=== PATIENT | female | born 1940 | race Caucasian/White ===

== ENCOUNTER → 2017-09-29 09:25 | Outpatient (CLI) | payer MEDICARE, OTHER, SELFPAY ==
--- NOTE | 2017-09-29 | DI.ECHO.S_ITS ---
[facility]---------+ [facility] +---------+ : : [address] : [address] : : : : [id number] : : : : Phone: [phone]+ Echocardiogram Report + + :Name: NIKKIE CATALAN Study Date: 09/29/2017 Height: 63 in : :[facility] Weight: 148 lb : : Gender: Female BSA: 1.7 m2 : :: 1940 Age: 76 yrs BP: 136/54 mmHg: :Reason For Study: Cardiomyopathy, Dilated : :Ordering Physician: Luba : :Freddyiwnoel Performed By: Sharri Dooley : :Referring: Rodrigo Landaverde : + + Interpretation Summary The left ventricle is mildly dilated. The ejection fraction is estimated to be 25-30%. Compared to the prior exam, left ventricular function is slightly improved. The right ventricle is grossly normal size. The right ventricular systolic function is normal. There is trace tricuspid regurgitation. The right ventricular systolic pressure is estimated at 42 mmHg assuming a right atrial pressure of 3 mm Hg. Procedure: A two-dimensional transthoracic echocardiogram with color flow and Doppler was performed. The study quality was technically adequate. Comparison is made with the echocardiogram of 05-20-17. The patient was in normal sinus rhythm during the exam. The patient had a bundle branch block rhythm during the exam. Left Ventricle: There is normal left ventricular wall thickness. The left ventricle is mildly dilated. There is no thrombus. A false chord is noted (normal variant). The ejection fraction is estimated to be 25-30%. Compared to the prior exam, left ventricular function is slightly improved. There is severe global hypokinesis of the left ventricle. There is a mild dyssynchronous contraction pattern, consistent with a conduction abnormality. Grade I diastolic dysfunction. Right Ventricle: The right ventricle is grossly normal size. The right ventricular systolic function is normal. Atria: The left atrium is moderately dilated. There has been no significant change since the previous study. Right atrial size is normal. The interatrial septum is intact with no evidence for an atrial septal defect. Mitral Valve: There is mild mitral annular calcification. There is trace mitral regurgitation. Aortic Valve: The aortic valve is trileaflet. The aortic valve opens well. There is no aortic valve stenosis. No aortic regurgitation is present. Tricuspid Valve: The tricuspid valve is normal in structure and function. The right ventricular systolic pressure is estimated at 42 mmHg assuming a right atrial pressure of 3 mm Hg. There is trace tricuspid regurgitation. Pulmonic Valve: The pulmonic valve is not well seen, but is grossly normal. There is trace pulmonic regurgitation. Great Vessels: The aortic root is normal size. The dimensions of the ascending aorta are normal. The IVC is of normal diameter and collapses greater than 50% with a sniff. This suggests a low right atrial pressure of 3 mm Hg. Pericardium/ Pleura There is no pericardial effusion. There is no pleural effusion. MMode/2D Measurements & Calculations LVIDd: 5.5 cm Ao root diam: 3.3 cm LVIDs: 4.6 cm Aortic Jxn: 2.6 cm FS: 16.6 % asc Aorta Diam: 3.1 cm EPSS: 0.69 cm IVSd: 1.1 cm LVPWd: 0.96 cm LV burgess. diameter/BSA (cm/m^2): 3.2 LV sys. diameter/BSA (cm/m^2): 2.7 LA dimension: 4.1 cm RA long axis: 4.6 cm LA A2 area: 22.3 cm2 RA area: 16.2 cm2 LA A4 area: 20.6 cm2 RA vol: 47.9 ml LA length (vol): 4.6 cm RA : 28.1 ml/m2 LA vol: 84.4 ml IVC diam: 1.2 cm LA vol index: 49.6 ml/m2 RVDd major: 3.9 cm RVD1 (basal): 3.0 cm LA Length_phl: 4.7 cm Doppler Measurements & Calculations Ao V2 max: 118.9 cm/sec MV E max mp: 51.2 cm/sec Ao V2 mean: 75.3 cm/sec MV A max mp: 94.4 cm/sec Ao max P.7 mmHg MV E/A: 0.54 Ao mean P.7 mmHg Med Peak E' Mp: 4.4 cm/sec Ao V2 VTI: 30.1 cm E/E' med: 11.6 Lat Peak E' Mp: 3.1 cm/sec E/E' lat: 16.8 E/e' average: 14.2 MV dec time: 0.39 sec MV P1/2t: 115.7 msec TR max mp: 312.0 cm/sec MV P1/2t max mp: 50.9 cm/sec TR max P.9 mmHg MVA(P1/2t): 1.9 cm2 PA V2 max: 125.2 cm/sec PA V2 mean: 79.2 cm/sec PA mean P.0 mmHg PA Accel Time: 0.13 sec Reading Physician:AMARIS
== END ==
PROVIDERS: PCP Family Medicine; Visit Provider Internal Medicine Cardiovascular Disease
DX: I42.0 Dilated cardiomyopathy (principal); I50.22 Chronic systolic (congestive) heart failure; I44.7 Left bundle-branch block, unspecified
CPT/HCPCS: 36415; 80048; 93306

== ENCOUNTER → 2017-09-29 10:49 | Outpatient (CLI) | payer MEDICARE, OTHER, SELFPAY ==
[2017-09-29 11:46] LABS: Blood Urea Nitrogen 30 mg/dL (7-17); Calcium 9.9 mg/dL (8.4-10.2); Carbon Dioxide 33 mmol/L (22-32); Chloride 97 mmol/L (98-107); Estimated Glomerular Filt Rate 43.6 mL/min (>60); Glucose 107 mg/dL (80-110); HEMOLYSIS < 15 (0-50); Potassium 4.6 mmol/L (3.4-5.1); Sodium 136 mmol/L (137-145)
== END ==
PROVIDERS: PCP Family Medicine; Visit Provider Internal Medicine Cardiovascular Disease
DX: I50.22 Chronic systolic (congestive) heart failure (principal); I42.0 Dilated cardiomyopathy; Z53.9 Procedure and treatment not carried out, unspecified reason
CPT/HCPCS: 36415; 80048

== ENCOUNTER → 2017-11-04 14:03 | Outpatient (CLI) | payer MEDICARE, OTHER, SELFPAY ==
[2017-11-04 14:26] LABS: Add Manual Diff / Slide Review NO; Basophils Percent Auto 1.2 % (0-2); Eosinophils Percent Auto 4.7 % (2-4); Hematocrit 32.3 % (36-46); Lymphocytes Percent Auto 16.5 % (25-40); Mean Corpuscular Hemoglobin 37.9 PG (26-34); Mean Corpuscular Volume 111.7 fL (80-100); Monocytes Percent Auto 8.1 % (3-14); Neutrophils Absolute Auto 4400 /uL (3000-5900); Neutrophils Percent Auto 69.5 % (50-75); Platelet Count 252 X10^3/uL (150-400); Red Blood Cell Count 2.89 X10^6/uL (4.0-5.2); Red Cell Distribution Width 16.3 % (11.6-14.8); White Blood Cell Count 6.4 X10^3/uL (4.5-11.0)
[2017-11-04 14:59] LABS: Alanine Aminotransferase 40 IU/L (9-52); Albumin 3.3 g/dL (3.5-5.0); Albumin Globulin Ratio 1.1 (1.0-2.8); Alkaline Phosphatase 109 U/L (38-126); Aspartate Aminotransferase 32 IU/L (14-36); Bilirubin Total 0.6 mg/dL (0.2-1.3); Bilirubin Unconjugated 0.3 mg/dL (0.0-1.1); HEMOLYSIS < 15 (0-50); Total Protein 6.3 g/dL (6.3-8.2)
[2017-11-04 15:42] LABS: Macrocytosis 2+
== END ==
PROVIDERS: PCP Family Medicine; Visit Provider Internal Medicine Gastroenterology
DX: Z79.899 Other long term (current) drug therapy (principal)
CPT/HCPCS: 36415; 80076; 85025

== ENCOUNTER → 2017-12-03 11:23 | Outpatient (CLI) | payer MEDICARE, OTHER, SELFPAY ==
--- NOTE | 2017-12-03 | DI.CT.S_ITS ---
PROCEDURE: CT ABDOMEN PELVIS W CON INDICATIONS: Nausea. Loss of appetite TECHNIQUE: After the administration of oral and intravenous contrast, 5 mm thick sections acquired from the diaphragms to the symphysis. 5 mm thick coronal and sagittal reformats were performed. For radiation dose reduction, the following was used: automated exposure control, adjustment of mA and/or kV according to patient size. COMPARISON: [facility], CT, ABDOMEN/PELVIS WITH CONTRAST, 11/16/2015, 13:41. FINDINGS: Image quality: Excellent. ABDOMEN: Lung bases: Again noted are multiple nodular densities scattered in posterior and lateral periphery of right lower lobe as well as the lateral aspect of left lower lobe, essentially unchanged in size and appearance from previous studies dating back to 2012 and are suggestive of benign process. Cardiac size is normal, no paracardial effusion. No pleural effusion or pneumothorax. Solid organs: Liver is normal in size. Hepatic steatosis is seen. No discrete hepatic lesion. Gallbladder is surgically absent. Biliary system is non-dilated. Pancreas enhances normally. Spleen is normal in size and enhancement. No adrenal nodules. Kidneys are normal in size and enhancement, without hydronephrosis. Large right renal cyst is again seen, unchanged in size and appearance from previous study. Peritoneum and bowel: There is a small hiatal hernia. No evidence of bowel obstruction. No abnormal stomach or small bowel wall thickening. There is fecal stasis in the colon. There is diffuse sigmoid colon wall thickening and edema with pericolonic fat stranding. Diffuse rectal wall thickening with adjacent fat stranding is also seen. Sigmoid diverticulosis is noted. No free fluid or free air. Nodes and vessels: No retroperitoneal or mesenteric adenopathy. Aorta and inferior vena cava are normal in caliber. Miscellaneous: No ventral hernias. PELVIS: Genitourinary: There is mild anterior bladder wall thickening. No discrete bladder wall mass is seen. Miscellaneous: No inguinal hernias or adenopathy. Bones: No suspicious bony lesions. No vertebral body compression fractures. IMPRESSION: 1. Long segment circumferential wall thickening and edema involving mid to distal sigmoid colon and rectum suggestive of infectious, ischemic or inflammatory colitis and proctitis. Underlying rectal wall mass cannot be excluded. GI correlation is recommended. Finding is not suggestive of acute diverticulitis. 2. No bowel obstruction. No free fluid or free air. 3. Interval cholecystectomy. Hepatic steatosis. 4. Stable appearing bibasilar pulmonary nodules. Dictated by: Miller Fitch M.D. on 12/03/2017 at 15:22 Approved by: Miller Fitch M.D. on 12/03/2017 at 15:34
[2017-12-03 12:13] LABS: Blood Urea Nitrogen 35 mg/dL (7-17); Carbon Dioxide 33 mmol/L (22-32); Chloride 100 mmol/L (98-107); Estimated Glomerular Filt Rate 36.4 mL/min (>60); Glucose 110 mg/dL (80-110); HEMOLYSIS < 15 (0-50); Potassium 4.7 mmol/L (3.4-5.1); Sodium 138 mmol/L (137-145)
== END ==
PROVIDERS: PCP Family Medicine; Visit Provider Internal Medicine Gastroenterology
DX: K50.10 Crohn's disease of large intestine without complications (principal); R11.2 Nausea with vomiting, unspecified; I50.22 Chronic systolic (congestive) heart failure; K76.0 Fatty (change of) liver, not elsewhere classified; R91.8 Other nonspecific abnormal finding of lung field
CPT/HCPCS: 36415; 74177; 80048; Q9967

== ENCOUNTER → 2018-02-08 12:48 | Outpatient (CLI) | payer MEDICARE, OTHER, SELFPAY ==
[2018-02-08 14:19] LABS: Hematocrit 31.3 % (36-46); Hemoglobin 10.7 g/dL (12.0-16.0); Mean Corpuscular HGB Conc 34.1 % (30-36); Mean Corpuscular Hemoglobin 37.9 PG (26-34); Platelet Count 354 X10^3/uL (150-400); Red Blood Cell Count 2.81 X10^6/uL (4.0-5.2); Red Cell Distribution Width 17.2 % (11.6-14.8); White Blood Cell Count 6.5 X10^3/uL (4.5-11.0)
[2018-02-08 14:22] LABS: Add Manual Diff / Slide Review YES
[2018-02-08 14:44] LABS: Neutrophils Absolute Manual 5135 /uL (3000-5900); Nucleated Red Blood Cells 1 #/Diff; Total Cells Counted 100
[2018-02-08 14:46] LABS: Macrocytosis 2+
[2018-02-08 15:39] LABS: Alanine Aminotransferase 29 IU/L (9-52); Albumin 3.7 g/dL (3.5-5.0); Albumin Globulin Ratio 1.2 (1.0-2.8); Alkaline Phosphatase 115 U/L (38-126); Aspartate Aminotransferase 24 IU/L (14-36); Bilirubin Total 0.7 mg/dL (0.2-1.3); Bilirubin Unconjugated 0.4 mg/dL (0.0-1.1); Blood Urea Nitrogen 26 mg/dL (7-17); Calcium 9.9 mg/dL (8.4-10.2); Carbon Dioxide 31 mmol/L (22-32); Chloride 97 mmol/L (98-107); Estimated Glomerular Filt Rate 39.6 mL/min (>60); Globulin 3.2 g/dL (1.7-4.1); Glucose 101 mg/dL (80-110); HEMOLYSIS < 15 (0-50); Potassium 4.2 mmol/L (3.4-5.1); Sodium 135 mmol/L (137-145); Total Protein 6.9 g/dL (6.3-8.2)
== END ==
PROVIDERS: Family Provider Student in an Organized Health Care Education/Training Program; PCP Student in an Organized Health Care Education/Training Program; Visit Provider Internal Medicine Cardiovascular Disease
DX: Z79.899 Other long term (current) drug therapy (principal); I50.22 Chronic systolic (congestive) heart failure
CPT/HCPCS: 36415; 80048; 80076; 85025

== ENCOUNTER → 2018-02-23 10:36 | Outpatient (CLI) | payer MEDICARE, OTHER, SELFPAY ==
--- NOTE | 2018-02-23 | DI.ECHO.S_ITS ---
[facility]---------+ [facility] +---------+ : : [address] : : : : [address] : : : : [id number] : : : : Phone: [phone]+ Echocardiogram Report + + :Name: NIKKIE CATALAN Study Date: 02/23/2018 Height: 63 in : :[facility] Weight: 130 lb : : Gender: Female BSA: 1.6 m2 : :: 1940 Age: 77 yrs BP: 120/62 mmHg: :Reason For Study: Cardiomyopathy, Dilated : :Ordering Physician: Luba : :María Performed By: Sharri Dooley : :Referring: Rodrigo Landaverde : + + Interpretation Summary The left ventricle is normal in size. Left ventricular systolic function is mild to moderately reduced. The ejection fraction is estimated to be 40-45%. Left ventricular systolic function has moderately improved compared to the previous exam. Diastolic parameters suggest a relaxation abnormality of the left ventricle, consistent with probable normal filling pressures. The right ventricle grossly appears normal in size with probable normal systolic function. Procedure: A two-dimensional transthoracic echocardiogram with color flow and Doppler was performed in limited views only. The study quality was technically good. Comparison is made with the echocardiogram of 09-29-17. The patient was in normal sinus rhythm during the exam. Left Ventricle: The left ventricle is normal in size. There is mild asymmetric left ventricular hypertrophy. Left ventricular systolic function is mild to moderately reduced. The ejection fraction is estimated to be 40-45%. Left ventricular systolic function has moderately improved compared to the previous exam. There is a mild dyssynchronous contraction pattern, consistent with a conduction abnormality. Diastolic parameters suggest a relaxation abnormality of the left ventricle, consistent with probable normal filling pressures. Right Ventricle: The right ventricle grossly appears normal in size with probable normal systolic function. Mitral Valve: The mitral valve leaflets appear mildly thickened, but open well. There is trace mitral regurgitation. Aortic Valve: The aortic valve is trileaflet. The aortic valve opens well. There is trace aortic regurgitation. Tricuspid Valve: The tricuspid valve is normal in structure and function. There is trace tricuspid regurgitation. MMode/2D Measurements & Calculations LVIDd: 5.3 cm LVIDs: 4.8 cm FS: 8.0 % IVSd: 1.2 cm LVPWd: 0.90 cm LV burgess. diameter/BSA (cm/m^2): 3.3 LV sys. diameter/BSA (cm/m^2): 3.0 Doppler Measurements & Calculations MV E max mp: 59.2 cm/sec TR max mp: 256.2 cm/sec MV A max mp: 101.4 cm/sec TR max P.2 mmHg MV E/A: 0.58 Med Peak E' Mp: 3.9 cm/sec E/E' med: 15.2 Lat Peak E' Mp: 4.4 cm/sec E/E' lat: 13.4 E/e' average: 14.3 MV dec time: 0.19 sec MV P1/2t: 55.9 msec MV P1/2t max mp: 59.6 cm/sec MVA(P1/2t): 3.9 cm2 Reading Physician:AMARIS
[2018-02-23 12:22] LABS: BUN Creatinine Ratio 21.7 (6-22); Blood Urea Nitrogen 26 mg/dL (7-17); Calcium 9.5 mg/dL (8.4-10.2); Carbon Dioxide 30 mmol/L (22-32); Chloride 99 mmol/L (98-107); Estimated Glomerular Filt Rate 43.4 mL/min (>60); Glucose 108 mg/dL (80-110); HEMOLYSIS < 15 (0-50); Potassium 4.6 mmol/L (3.4-5.1); Sodium 139 mmol/L (137-145)
[2018-02-23 13:25] LABS: B Type Natriuretic Peptide 31.2 (<100)
== END ==
PROVIDERS: Family Provider Student in an Organized Health Care Education/Training Program; PCP Student in an Organized Health Care Education/Training Program; Referring Provider Physician Assistant; Visit Provider Internal Medicine Cardiovascular Disease
DX: I42.0 Dilated cardiomyopathy (principal); R06.02 Shortness of breath
CPT/HCPCS: 36415; 80048; 83880; 93307

== ENCOUNTER → 2018-04-03 11:06 | Outpatient (CLI) | payer MEDICARE, OTHER, SELFPAY ==
--- NOTE | 2018-04-03 11:08 | DI.MG.S_ITS ---
BILATERAL DIGITAL SCREENING MAMMOGRAM 3D/2D WITH CAD: 04/03/2018 CLINICAL: Routine screening. Comparison is made to exams dated: 02/09/2017 mammogram, 02/08/2016 mammogram, and 02/06/2015 mammogram - [facility]. There are scattered fibroglandular elements in both breasts. Current study was also evaluated with a Computer Aided Detection (CAD) system. There are benign biopsy clips in the left breast. No significant masses, calcifications, or other findings are seen in either breast. There has been no significant interval change. IMPRESSION: NEGATIVE There is no mammographic evidence of malignancy. A 1 year screening mammogram is recommended. This exam was interpreted at Station ID: [id number]. NOTE: For mammograms, a report in lay terms will be sent to the patient. Approximately 15% of breast malignancies will not be visualized mammographically. In the management of a palpable breast mass, a negative mammogram must not discourage biopsy of a clinically suspicious lesion. Electronically Signed By: Mariella garcia/leonid:04/05/2018 16:01:51 letter sent: Normal Exam ACR BI-RADS Category 1: Negative [id number]
== END ==
PROVIDERS: Family Provider Student in an Organized Health Care Education/Training Program; PCP Student in an Organized Health Care Education/Training Program; Visit Provider Student in an Organized Health Care Education/Training Program
DX: Z12.31 Encounter for screening mammogram for malignant neoplasm of breast (principal)
CPT/HCPCS: 77063; 77067

== ENCOUNTER → 2018-04-15 14:39 | Outpatient (CLI) | payer MEDICARE, OTHER, SELFPAY ==
[2018-04-15 15:14] LABS: Blood Urea Nitrogen 30 mg/dL (7-17); Calcium 9.8 mg/dL (8.4-10.2); Carbon Dioxide 29 mmol/L (22-32); Chloride 98 mmol/L (98-107); Estimated Glomerular Filt Rate 33.6 mL/min (>60); Glucose 107 mg/dL (80-110); HEMOLYSIS < 15 (0-50); Potassium 5.2 mmol/L (3.4-5.1); Sodium 135 mmol/L (137-145)
[2018-04-15 15:23] LABS: B Type Natriuretic Peptide < 100 (<100)
== END ==
PROVIDERS: PCP Student in an Organized Health Care Education/Training Program; Visit Provider Internal Medicine Cardiovascular Disease
DX: I42.8 Other cardiomyopathies (principal); R06.09 Other forms of dyspnea
CPT/HCPCS: 36415; 80048; 83880

== ENCOUNTER → 2018-04-26 14:36 | Outpatient (CLI) | payer MEDICARE, OTHER, SELFPAY ==
[2018-04-26 16:06] LABS: BUN Creatinine Ratio 21.8 (6-22); Blood Urea Nitrogen 24 mg/dL (7-17); Calcium 9.6 mg/dL (8.4-10.2); Carbon Dioxide 29 mmol/L (22-32); Chloride 97 mmol/L (98-107); Glucose 112 mg/dL (80-110); HEMOLYSIS < 15 (0-50); Potassium 4.5 mmol/L (3.4-5.1); Sodium 133 mmol/L (137-145)
== END ==
PROVIDERS: Family Provider Student in an Organized Health Care Education/Training Program; PCP Student in an Organized Health Care Education/Training Program; Visit Provider Internal Medicine Cardiovascular Disease
DX: I50.22 Chronic systolic (congestive) heart failure (principal)
CPT/HCPCS: 36415; 80048

== ENCOUNTER → 2018-05-12 14:53 | Outpatient (CLI) | payer MEDICARE, OTHER, SELFPAY ==
[2018-05-12 15:21] LABS: Add Manual Diff / Slide Review NO; Basophils Absolute Auto 0 /uL (0-100); Basophils Percent Auto 0.5 % (0-2); Eosinophils Absolute Auto 100 /uL (0-450); Eosinophils Percent Auto 2.4 % (2-4); Hematocrit 23.9 % (36-46); Hemoglobin 8.2 g/dL (12.0-16.0); Lymphocytes Absolute Auto 700 /uL (1100-4500); Lymphocytes Percent Auto 16.1 % (25-40); Mean Corpuscular HGB Conc 34.2 % (30-36); Mean Corpuscular Hemoglobin 39.1 PG (26-34); Mean Corpuscular Volume 114.3 fL (80-100); Monocytes Absolute Auto 600 /uL (0-900); Monocytes Percent Auto 14.1 % (3-14); Neutrophils Absolute Auto 2900 /uL (1500-7000); Neutrophils Percent Auto 66.9 % (50-75); Platelet Count 295 X10^3/uL (150-400); Red Blood Cell Count 2.09 X10^6/uL (4.0-5.2); White Blood Cell Count 4.3 X10^3/uL (4.5-11.0)
[2018-05-12 15:32] LABS: Acanthocytes 1+; Anisocytosis 2+; Macrocytosis 2+; Ovalocytes 1+; Poikilocytosis 3+; Tear Drop Cells 1+
[2018-05-12 15:36] LABS: Schistocytes 1+
[2018-05-12 15:55] LABS: Alanine Aminotransferase 25 IU/L (9-52); Albumin 2.6 g/dL (3.5-5.0); Albumin Globulin Ratio 0.9 (1.0-2.8); Alkaline Phosphatase 86 U/L (38-126); Aspartate Aminotransferase 15 IU/L (14-36); Bilirubin Total 0.3 mg/dL (0.2-1.3); Bilirubin Unconjugated 0.1 mg/dL (0.0-1.1); Globulin 2.9 g/dL (1.7-4.1); HEMOLYSIS < 15 (0-50); Total Protein 5.5 g/dL (6.3-8.2)
== END ==
PROVIDERS: Family Provider Internal Medicine Cardiovascular Disease; PCP Student in an Organized Health Care Education/Training Program; Visit Provider Internal Medicine Gastroenterology
DX: Z79.899 Other long term (current) drug therapy (principal)
CPT/HCPCS: 36415; 80076; 85025

== ENCOUNTER → 2018-07-21 16:31 | Outpatient (CLI) | payer MEDICARE, OTHER, SELFPAY ==
[2018-07-21 17:31] LABS: HEMOLYSIS < 15 (0-50); Iron 26 ug/dL (37-170)
[2018-07-21 17:34] LABS: Alanine Aminotransferase 27 IU/L (9-52); Albumin 2.5 g/dL (3.5-5.0); Albumin Globulin Ratio 0.9 (1.0-2.8); Alkaline Phosphatase 81 U/L (38-126); Aspartate Aminotransferase 13 IU/L (14-36); BUN Creatinine Ratio 14.5 (6-22); Bilirubin Total 0.4 mg/dL (0.2-1.3); Bilirubin Unconjugated 0.3 mg/dL (0.0-1.1); Blood Urea Nitrogen 16 mg/dL (7-17); Carbon Dioxide 29 mmol/L (22-32); Chloride 92 mmol/L (98-107); Globulin 2.8 g/dL (1.7-4.1); Glucose 83 mg/dL (80-110); HEMOLYSIS < 15 (0-50); Potassium 4.4 mmol/L (3.4-5.1); Sodium 128 mmol/L (137-145); Total Protein 5.3 g/dL (6.3-8.2)
[2018-07-21 17:38] LABS: Reticulocyte Count, Percent 1.9 % (1.06-2.63)
[2018-07-21 17:42] LABS: Percent Iron Saturation 15 % (15-50); Total Iron Binding Capacity 172 ug/dL (265-497); Transferrin 114 mg/dL (206-381)
[2018-07-21 17:57] LABS: Add Manual Diff / Slide Review NO; Basophils Absolute Auto 0 /uL (0-100); Basophils Percent Auto 0.8 % (0-2); Eosinophils Absolute Auto 100 /uL (0-450); Eosinophils Percent Auto 1.2 % (2-4); Hematocrit 24.3 % (36-46); Hemoglobin 8.1 g/dL (12.0-16.0); Lymphocytes Absolute Auto 500 /uL (1100-4500); Lymphocytes Percent Auto 10.1 % (25-40); Mean Corpuscular HGB Conc 33.4 % (30-36); Mean Corpuscular Hemoglobin 37.8 PG (26-34); Mean Corpuscular Volume 113.3 fL (80-100); Monocytes Absolute Auto 600 /uL (0-900); Neutrophils Absolute Auto 3900 /uL (1500-7000); Neutrophils Percent Auto 75.9 % (50-75); Platelet Count 398 X10^3/uL (150-400); Red Blood Cell Count 2.15 X10^6/uL (4.0-5.2); White Blood Cell Count 5.2 X10^3/uL (4.5-11.0)
[2018-07-21 18:25] LABS: Vitamin B12 > 1000 pg/mL (239-931)
[2018-07-21 19:08] LABS: Anisocytosis 2+; Hypochromasia 2+; Poikilocytosis 1+
[2018-07-22 11:23] LABS: Folate 5.7 ng/mL (2.76-20.0)
== END ==
PROVIDERS: Family Provider Internal Medicine Cardiovascular Disease; PCP Student in an Organized Health Care Education/Training Program; Visit Provider Internal Medicine Gastroenterology
DX: I50.22 Chronic systolic (congestive) heart failure (principal); D64.9 Anemia, unspecified; N18.9 Chronic kidney disease, unspecified; Z79.899 Other long term (current) drug therapy
CPT/HCPCS: 80048; 80076; 82607; 82728; 82746; 83540; 83550; 85025; 85045; 86880

== ENCOUNTER → 2018-08-03 16:01 | Outpatient (CLI) | payer MEDICARE, OTHER, SELFPAY | PROVIDERS: Family Provider Internal Medicine Cardiovascular Disease; PCP Student in an Organized Health Care Education/Training Program; Referring Provider Internal Medicine Gastroenterology; Visit Provider Student in an Organized Health Care Education/Training Program ==

== ENCOUNTER → 2018-08-05 16:25 | Outpatient (CLI) | payer MEDICARE, OTHER, SELFPAY ==
[2018-08-09 17:47] LABS: Osmolality Urine 484 mOsm/kg (50-1200)
[2018-08-20 16:10] LABS: Collection Time Urine 24 Hours; Total Volume Urine 2400 mL
[2018-08-20 16:17] LABS: Sodium 24 Hour Urine 151 mmol/day (40-220); Sodium Urine Random 63 mmol/L (30-90)
== END ==
PROVIDERS: PCP Student in an Organized Health Care Education/Training Program; Visit Provider Student in an Organized Health Care Education/Training Program
DX: E46 Unspecified protein-calorie malnutrition (principal); E87.1 Hypo-osmolality and hyponatremia; N18.9 Chronic kidney disease, unspecified
CPT/HCPCS: 83935; 84300

== ENCOUNTER → 2018-08-20 13:52 | Outpatient (CLI) | payer MEDICARE, OTHER, SELFPAY ==
[2018-08-20 15:43] LABS: Collection Time Urine 24 Hours; Protein (Total) Urine Random 59 mg/dL (0-12); Total Protein 24 Hour Urine 325 mg/day (42-225); Total Volume Urine 550 mL
[2018-08-20 17:14] LABS: Folate 4.9 ng/mL (2.76-20.0); Vitamin B12 > 1000 pg/mL (239-931)
== END ==
PROVIDERS: Family Provider Student in an Organized Health Care Education/Training Program; PCP Student in an Organized Health Care Education/Training Program; Visit Provider Internal Medicine Gastroenterology
DX: K50.111 Crohn's disease of large intestine with rectal bleeding (principal); D75.89 Other specified diseases of blood and blood-forming organs; E46 Unspecified protein-calorie malnutrition; E87.1 Hypo-osmolality and hyponatremia; N18.9 Chronic kidney disease, unspecified
CPT/HCPCS: 36415; 82607; 82746; 84156

== ENCOUNTER → 2018-09-03 17:09 | Outpatient (CLI) | payer MEDICARE, OTHER, SELFPAY ==
[2018-09-03 19:00] LABS: BUN Creatinine Ratio 17.3 (6-22); Blood Urea Nitrogen 19 mg/dL (7-17); Calcium 9.1 mg/dL (8.4-10.2); Carbon Dioxide 29 mmol/L (22-32); Chloride 93 mmol/L (98-107); Glucose 99 mg/dL (80-110); HEMOLYSIS < 15 (0-50); Potassium 5.1 mmol/L (3.4-5.1); Sodium 127 mmol/L (137-145)
== END ==
PROVIDERS: PCP Student in an Organized Health Care Education/Training Program; Visit Provider Student in an Organized Health Care Education/Training Program
DX: N18.9 Chronic kidney disease, unspecified (principal)
CPT/HCPCS: 36415; 80048

== ENCOUNTER → 2018-09-17 13:19 | Outpatient (CLI) | payer MEDICARE, OTHER, SELFPAY ==
--- NOTE | 2018-09-17 13:22 | DI.CT.S_ITS ---
PROCEDURE: CT CHEST W CON INDICATIONS: R/o lung malignancy. 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 TECHNIQUE: After the administration of intravenous contrast, 5 mm thick sections acquired from the pulmonary apices to the posterior costophrenic angles. 7 mm thick coronal and sagittal MIP reformats were acquired. For radiation dose reduction, the following was used: automated exposure control, adjustment of mA and/or kV according to patient size. COMPARISON: [facility], CT, CT ABDOMEN PELVIS W CON, 12/03/2017, 13:03. FINDINGS: Image quality: Excellent. Lungs and pleura: No acute air space opacities. Lung volumes are relatively large, centrilobular emphysema is suspected. No pleural effusions or pneumothorax. Central and peripheral airways are patent and normal in caliber. Mediastinum: Heart size is normal. No pericardial effusion. No mediastinal or hilar adenopathy by size criteria. Thoracic aorta and central pulmonary arteries are normal in size. Esophagus is normal in caliber. No hiatal hernia. Bones and chest wall: No suspicious bony lesions. No vertebral body compression fractures. No axillary or supraclavicular adenopathy by size criteria. Thyroid gland appears normal where well seen.. Abdomen: Visualized upper abdominal solid organs appear normal. Upper abdominal bowel loops are normal in caliber. IMPRESSION: No pulmonary mass lesion found, what appears to be pulmonary hyperexpansion and centrilobular emphysema is suspected. A source of cough and SIADH is not identified. Dictated by: Ricardo Booker M.D. on 09/17/2018 at 15:24 Approved by: Ricardo Booker M.D. on 09/17/2018 at 15:26
== END ==
PROVIDERS: PCP Student in an Organized Health Care Education/Training Program; Visit Provider Student in an Organized Health Care Education/Training Program
DX: E22.2 Syndrome of inappropriate secretion of antidiuretic hormone (principal); R05 Cough; R91.8 Other nonspecific abnormal finding of lung field
CPT/HCPCS: 71260; Q9967

== ENCOUNTER → 2018-12-09 13:51 | Outpatient (CLI) | payer MEDICARE, OTHER, SELFPAY ==
[2018-12-09 15:43] LABS: Folate 5.9 ng/mL (2.76-20.0); Vitamin B12 917 pg/mL (239-931)
== END ==
PROVIDERS: PCP Student in an Organized Health Care Education/Training Program; Visit Provider Internal Medicine Gastroenterology
DX: K50.111 Crohn's disease of large intestine with rectal bleeding (principal); D75.89 Other specified diseases of blood and blood-forming organs
CPT/HCPCS: 36415; 82607; 82746

== ENCOUNTER → 2019-03-15 13:59 | Outpatient (CLI) | payer MEDICARE, OTHER, SELFPAY ==
[2019-03-15 14:42] LABS: Appearance Urine UA SL CLOUDY; Bilirubin Urine UA NEGATIVE (NEGATIVE); Color Urine UA YELLOW; Glucose Urine UA NEGATIVE (Negative); Ketones Urine UA NEGATIVE (NEGATIVE); Leukocyte Esterase Urine UA 1+ (NEGATIVE); Nitrite Urine UA POSITIVE (Negative); Occult Blood Urine UA TRACE-LYSED (Negative); Protein Urine UA 2+ (Negative); Urobilinogen Urine UA 0.2 E.U./dL (0.2)
[2019-03-15 14:43] LABS: pH Urine UA 5.5 (4.5-8.0)
[2019-03-15 14:51] LABS: Amorphous Sediment Urine 1+; Bacteria Urine Many (>30); Culture Indicated Urine Specimen Cultured; Mucus Urine 1+ (Negative); RBC Urine 0-1/HPF (0-5/HPF); Squamous Epithelial Cell Urine 1-5 /HPF (0-5/HPF); WBC Urine 30-100/HPF (0-5/HPF)
== END ==
PROVIDERS: PCP Student in an Organized Health Care Education/Training Program; Visit Provider Nurse Practitioner
DX: R30.0 Dysuria (principal)
CPT/HCPCS: 81001; 87077; 87086; 87186

== ENCOUNTER → 2019-04-07 10:00 | Oncology outpatient (ONC) | payer MEDICARE, OTHER, SELFPAY ==
[2019-03-22 14:00] VITALS: BP 131/56; PULSE 67; RESP 16; TEMP 36.8; O2SAT 97
--- NOTE | 2019-03-22 14:38 | ONC.CONS ---
History of Present Illness - Data of Consult Consult date: 03/22/19 Primary Care Provider: Roberto West MD - Consult Narrative Narrative: Diagnosis: Macrocytic anemia History of present illness: Narda Flynn is a 78 year old female who is referred for further evaluation of anemia. She has a longstanding history of Crohn's. She had been stable on Remicade but developed a heart murmur. Because of this, her Remicade was stopped. Since then, she has had worsening flare of her disease. She knows frequent diarrhea up to 20 or 20 5 times a day. She has occasional blood in the stool although it has not been severe. She has ongoing nausea and abdominal pain. She has lost almost 30 lb over the last year. She notes persistent fatigue. She has some dizziness. She is not having any chest pain or pressure. She does have some dyspnea on exertion and a cough which has been chronic. She did have transfusion once many years ago but has not had any other transfusions. She denies any epistaxis or gingival bleeding. She has not noticed any adenopathy. No fevers. She does have some chills and occasional night sweats. In July, her white count was 5000 hemoglobin was 8 hematocrit 25.4 with an MCV of 116 and a platelet count of [id number]. In 2018, her red cell count had been normal or nearly normal. Her past medical history is notable for Crohn's disease as described above. She has a history of hypertension and hyperlipidemia. She has a history of a heart murmur. She has had a stent placed in her carotid artery. She has a history of COPD and did recently quit smoking. She has had a prior appendectomy, cholecystectomy and hysterectomy. Her family history is negative for anemia. She thinks that both her mother grandmother may have had Crohn's disease and or colon cancer. Social history: She is . 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 CC: Mega Mayer MD Home Medications and Allergies Home Medications Medication Instructions Recorded Confirmed Type atorvastatin [Lipitor] 20 mg PO QPM #120 tab 07/25/16 07/21/18 Rx azathioprine 150 mg PO #0 08/15/16 07/21/18 History naproxen sodium [Aleve] 220 mg PO BIDCC #0 11/20/16 07/21/18 History polyethylene glycol 3350 [Miralax] 17 gm PO QDAYP PRN #0 11/20/16 07/21/18 History aspirin #0 06/04/17 07/21/18 History carvedilol [Coreg] #0 06/04/17 07/21/18 History mupirocin 2 % TOPICAL TID #22 gm 06/04/17 07/21/18 Rx ferrous sulfate 325 mg (65 mg 325 mg PO DAILY tab 01/07/18 07/21/18 History iron) tablet omeprazole 20 mg capsule,delayed 20 mg PO DAILY 01/07/18 07/21/18 History release ipratropium 20 mcg-albuterol 100 1 inhalation INHALATION QID #4 gram 03/10/18 07/21/18 Rx mcg/actuation mist for inhalation lisinopril 2.5 mg tablet 5 mg PO BID #0 tab 07/21/18 07/21/18 History budesonide-formoterol HFA 80 2 puff INHALATION BID 07/27/18 History mcg-4.5 mcg/actuation aerosol inhaler montelukast 10 mg tablet 10 mg PO QPM 07/27/18 History food supplemt, lactose-reduced See Rx Instructions .ROUTE 08/04/18 Rx .COMPLEX #10 each levothyroxine 75 mcg tablet 75 mcg PO QDAY #90 tab 09/02/18 Rx trazodone 100 mg tablet 100 mg PO DAILY #90 tab 11/12/18 Rx nitrofurantoin 100 mg PO BID #14 cap 03/16/19 Rx monohydrate/macrocrystals 100 mg capsule phenazopyridine 100 mg tablet 100 mg PO TID PRN #6 tab 03/16/19 Rx Allergies Allergy/AdvReac Type Severity Reaction Status Date / Time No Known Drug Allergies Allergy Verified 07/21/18 15:53 Medical History - Medical, Surgical, Family History Medical History: Medical History (Last Updated 01/15/18 @ 12:57 by Kiarra Topete LPN) Anxiety Carpal tunnel syndrome Cataract, right eye CHF (congestive heart failure) Colon polyps COPD (chronic obstructive pulmonary disease) Crohn's disease Depression Glaucoma Hearing loss Hiatal hernia Hyperlipidemia Hypertension Hypothyroidism Macular hole Pulmonary nodules Onset Date: 2009 Scarlet fever Ulcerative colitis Surgical History: Surgical History (Last Updated 01/15/18 @ 12:57 by Kiarra Topete LPN) History of carpal tunnel release History of repair of hiatal hernia History of tonsillectomy Hx of cataract surgery Hx of cholecystectomy Hx of colonoscopy with polypectomy Hx of vitrectomy Status post appendectomy Status post hysterectomy Family History: Family History Brother No problems noted. Father No problems noted. Mother Cancer Grandmother Leukemia - Social History Smoking Status: Current some day smoker (Trying to quit) Review of Systems - Patient Self-Reported Symptoms SR Constitution: Chills, Weight loss/gain, Fatigue/Malaise, Night Sweats SR respiratory issues: Cough, Shortness of breath, Difficulty breathing, Mucous SR Cardiovascular issues: Shortness of breath with activity or lying flat, Dizzy/lightheaded SR Skin issues: Dry skin, Skin rash or itching SR Gastrointestinal issues: Poor or no appetite, Change in bowel pattern, Nausea, Vomiting, Diarrhea, Constipation SR Genitourinary issues: Burning/painful urination, Change in stream SR Musculoskeletal issues: Muscle weakness, Cold hands or feet, Difficulty walking SR Neuro issues: Lightheaded/dizzy, Difficulty balancing SR Endocrine issues: Cold intolerance Constitutional: weight loss, decreased activity level Eyes: change in vision Ears, nose, mouth, throat: lightheadedness, no epistaxis Cardiovascular: dyspnea on exertion, no chest pain, no palpitations Respiratory: shortness of breath, cough, no hemoptysis Gastrointestinal: change in appetite, abdominal pain, diarrhea, abnormal stools Musculoskeletal: weakness, no pain Integumentary: no rash Integumentary (breast): no lumps Hematologic/Lymphatic: anemia, no enlarged lymph nodes Exam Vital signs: Vital Signs Temp Pulse Resp BP Pulse Ox 03/22/19 14:00 98.2 F 67 16 131/56 L 97 Intake and Output 03/21/19 03/22/19 03/22/19 23:59 07:59 15:59 Other: Weight 49.5 kg Patient Weight 03/22/19 23:59 Weight 49.5 kg - Constitutional positive no acute distress, positive thin - Routine HEENT Exam Head: Present: normocephalic, atraumatic Eye: Present: EOMI, PERRL. Absent: conjunctival icterus, scleral injection ENT: Present: mucous membranes moist, oropharynx clear - Routine Neck Exam Present: supple. Absent: lymphadenopathy, thyromegaly - Routine Chest/Breast/Axilla Exam Axillae: Absent: lymphadenopathy - Routine Respiratory Exam Present: Clear to auscultation bilaterally. Absent: rales, wheezes - Routine Cardiovascular Exam Present: RRR, S1, S2. Absent: murmur - Routine Abdominal Exam Present: soft, normoactive bowel sounds. Absent: tenderness, organomegaly, mass - Routine Extremities Exam Absent: cyanosis, clubbing, edema - Routine Back/Spine Exam Back/Spine: Absent: vertebral tenderness - Routine Skin Exam Present: intact. Absent: petechiae, rash - Routine Neurological Exam Present: alert, oriented X3 - Routine Psychiatric Exam Present: normal affect, normal thought process Assessment and Plan (1) Anemia Current visit: No Status: Chronic This is a 78-year-old woman with a moderate to severe macrocytic anemia that is been present for at least 8-10 months but seems to have developed sometime over the course of 2018. I think it is likely multifactorial. It is certainly possible that she could have some blood loss as a consequence of her Crohn's disease. Likewise she could have some degree of anemia of chronic inflammation. She has previously had B12 and folate checked in the been normal although she could potentially be absorbing poorly. Iron deficiency could be contributing. I doubt that she has any hemolysis. Drugs or medications certainly could be contributing period of her medications, I think azathioprine would be the most likely cause. I think it is less likely that she has an underlying intrinsic marrow problem such as myelodysplasia. Today, will check a CBC as well as a B12 folate reticulocyte count and TSH. Will check an SPEP just to rule out an underlying a monoclonal gammopathy. Will also check iron studies. She will return to clinic in about 2 weeks or so for follow-up.
[2019-03-22 15:33] LABS: Reticulocyte Count, Percent 2.6 % (1.06-2.63)
[2019-03-22 15:56] LABS: C-Reactive Protein Quant 2.7 mg/dL (<1.0)
[2019-03-22 16:58] LABS: Folate 5.5 ng/mL (2.76-20.0); Vitamin B12 978 pg/mL (239-931)
[2019-03-24 12:21] LABS: Free Kappa Light Chain 109.7 mg/L (3.3-19.4); Free Kappa/ Lambda Ratio 0.94 (0.26-1.65); Free Lambda 117.1 mg/L (5.7-26.3)
[2019-03-24 20:40] LABS: Albumin 2.7 g/dL (3.8-4.8); Alpha 1 Globulin 0.5 g/dL (0.2-0.3); Alpha 2 Globulin 0.8 g/dL (0.5-0.9); Beta 1 Globulin 0.4 g/dL (0.4-0.6); Gamma Globulin 1.5 g/dL (0.8-1.7); Protein, Total 6.2 g/dL (6.1-8.1)
[2019-04-06 12:47] VITALS: BP 115/63; PULSE 69; RESP 18; TEMP 36.8; O2SAT 95
--- NOTE | 2019-04-06 13:15 | ONC.PN ---
PN -Subjective Interval history: Diagnosis: Macrocytic anemia, multifactorial Interval history: Patient is a 78-year-old woman who returns today for follow-up. She was seen initially about 2 weeks ago. She has had macrocytic anemia. She has a history of Crohn's disease that has been active recently. She is having about 20-25 loose stools a day. She occasionally sees some bright red blood. She does have a history of hemorrhoids as well. She has not been aware of any other unusual bleeding or bruising. She has been on azathioprine. She has also had been on Remicade for about 10 years but recently stopped. She has a prescription for a I think is a steroid enema but has not started using it yet. She does note worsening chills and fatigue. She has dyspnea on exertion and occasional dizziness. Her past medical history is notable for Crohn's disease. She has a history of hypertension and hyperlipidemia. She has a history of a heart murmur. She has had a stent placed in her carotid artery. She has a history of COPD and did recently quit smoking. She has had a prior appendectomy, cholecystectomy and hysterectomy. - Patient Self-Reported Symptoms SR Constitution: Chills, Weight loss/gain, Fatigue/Malaise SR respiratory issues: Cough, Shortness of breath, Difficulty breathing, Mucous SR Cardiovascular issues: Shortness of breath with activity or lying flat, Dizzy/lightheaded SR Skin issues: Skin rash or itching SR Gastrointestinal issues: Poor or no appetite, Change in bowel pattern, Nausea, Vomiting, Diarrhea, Constipation, Black/tarry stool, Abdominal pain SR Genitourinary issues: Burning/painful urination, Change in stream SR Musculoskeletal issues: Muscle weakness SR Neuro issues: Lightheaded/dizzy, Difficulty balancing SR Endocrine issues: Cold intolerance Home Medications and Allergies Home Medications Medication Instructions Recorded Confirmed Type atorvastatin [Lipitor] 20 mg PO QPM #120 tab 07/25/16 04/06/19 Rx azathioprine 150 mg PO DAILY #0 08/15/16 04/06/19 History naproxen sodium [Aleve] 220 mg PO BIDCC #0 11/20/16 04/06/19 History polyethylene glycol 3350 [Miralax] 17 gm PO QDAYP PRN #0 11/20/16 04/06/19 History aspirin 81 mg DAILY #0 06/04/17 04/06/19 History carvedilol [Coreg] 3.125 mg DAILY #0 06/04/17 04/06/19 History mupirocin 2 % TOPICAL TID #22 gm 06/04/17 04/06/19 Rx ferrous sulfate 325 mg (65 mg 325 mg PO DAILY tab 01/07/18 04/06/19 History iron) tablet omeprazole 20 mg capsule,delayed 20 mg PO DAILY 01/07/18 04/06/19 History release ipratropium 20 mcg-albuterol 100 1 inhalation INHALATION QID #4 gram 03/10/18 04/06/19 Rx mcg/actuation mist for inhalation lisinopril 2.5 mg tablet 5 mg PO BID #0 tab 07/21/18 04/06/19 History budesonide-formoterol HFA 80 2 puff INHALATION BID 07/27/18 04/06/19 History mcg-4.5 mcg/actuation aerosol inhaler montelukast 10 mg tablet 10 mg PO QPM 07/27/18 04/06/19 History food supplemt, lactose-reduced See Rx Instructions .ROUTE 08/04/18 04/06/19 Rx .COMPLEX #10 each levothyroxine 75 mcg tablet 75 mcg PO QDAY #90 tab 09/02/18 04/06/19 Rx trazodone 100 mg tablet 100 mg PO DAILY #90 tab 11/12/18 04/06/19 Rx nitrofurantoin 100 mg PO BID #14 cap 03/16/19 04/06/19 Rx monohydrate/macrocrystals 100 mg capsule phenazopyridine 100 mg tablet 100 mg PO TID PRN #6 tab 03/16/19 04/06/19 Rx Allergies Allergy/AdvReac Type Severity Reaction Status Date / Time No Known Drug Allergies Allergy Verified 07/21/18 15:53 Exam Vital signs: Vital Signs Temp Pulse Resp BP Pulse Ox 04/06/19 12:47 98.2 F 69 18 115/63 95 Intake and Output 04/05/19 04/06/19 04/06/19 23:59 07:59 15:59 Other: Weight 51 kg Patient Weight 04/06/19 23:59 Weight 51 kg - Constitutional positive no acute distress, positive thin - Routine HEENT Exam Head: Present: normocephalic, atraumatic Eye: Present: EOMI, PERRL. Absent: conjunctival icterus, scleral injection ENT: Present: mucous membranes moist, oropharynx clear - Routine Neck Exam Present: supple. Absent: lymphadenopathy, thyromegaly - Routine Respiratory Exam Present: Clear to auscultation bilaterally. Absent: rales, wheezes - Routine Cardiovascular Exam Present: RRR, S1, S2, murmur Comments: She has a 2/6 systolic murmur. - Routine Abdominal Exam Present: soft, normoactive bowel sounds. Absent: tenderness, organomegaly, mass - Routine Extremities Exam Absent: cyanosis, clubbing, edema - Routine Back/Spine Exam Back/Spine: Absent: vertebral tenderness - Routine Skin Exam Present: intact, pallor. Absent: petechiae, rash - Routine Neurological Exam Present: alert, oriented X3 - Routine Psychiatric Exam Present: normal affect, normal thought process Results - Labs Laboratory Last Values Percent Retic 2.6 % (1.06-2.63) 03/22/19 15:00 C-Reactive Protein 2.7 mg/dL (<1.0) H 03/22/19 15:00 Serum Total Protein 6.2 g/dL (6.1-8.1) 03/22/19 15:00 Albumin 2.7 g/dL (3.8-4.8) L 03/22/19 15:00 Cotmi-6-Ucxlwawqx 0.5 g/dL (0.2-0.3) H 03/22/19 15:00 Eqktb-0-Rfoibaika 0.8 g/dL (0.5-0.9) 03/22/19 15:00 Gepc-2-Mixwojqg 0.4 g/dL (0.4-0.6) 03/22/19 15:00 Hzfb-7-Usxenicn 0.3 g/dL (0.2-0.5) 03/22/19 15:00 Gamma Globulins 1.5 g/dL (0.8-1.7) 03/22/19 15:00 Abnorm Protein Band 1 Not Reportable 03/22/19 15:00 Abnorm Protein Band 2 Not Reportable 03/22/19 15:00 Abn Gamma Band 3 Serum Not Reportable 03/22/19 15:00 PEP Comment See note 03/22/19 15:00 Vitamin B12 978 pg/mL (239-931) H 03/22/19 15:00 Folate 5.5 ng/mL (2.76-20.0) 03/22/19 15:[address] [place] Light Chains 109.7 mg/L (3.3-19.4) H 03/22/19 15:00 Free Lambda Light Chain 117.1 mg/L (5.7-26.3) H 03/22/19 15:[address] [place]/Lambda Ratio 0.94 (0.26-1.65) 03/22/19 15:00 Assessment and Plan (1) Anemia Current visit: No Status: Chronic This is a 78-year-old woman with a moderate to severe macrocytic anemia that is been present for at least 8-10 months but seems to have developed sometime over the course of 2017. Her B12 and folate are normal. She does not have an elevated reticulocyte count which would effectively rule out hemolysis. She does have I think minor degree of bleeding. She also has an elevated crp and her iron studies are consistent with anemia of chronic disease. In addition, azathioprine can sometimes suppress marrow and cause a macrocytosis. SPEP was normal. Her serum free light chains were elevated in both the kappa and lambda with a normal ratio which is consistent with an inflammatory process and not a monoclonal process. Overall, I think her anemia is due to her inflammatory bowel disease, blood loss and potentially azathioprine. I think she would benefit from transfusion symptomatically. I think the best way to treat her anemia would be to try and control her Crohn's disease if possible. We did talk about the possibility of a bone marrow biopsy. It's theoretically possible that she has an underlying myelodysplasia. However chronic illness and azathioprine both can give a dysplastic appearing anemia. If her Crohn's improved in her blood counts do not, it may be worthwhile reconsidering a bone marrow biopsy.
[2019-04-06 13:59] LABS: Add Manual Diff / Slide Review NO; Basophils Absolute Auto 100 /uL (0-100); Basophils Percent Auto 1.1 % (0-2); Eosinophils Absolute Auto 100 /uL (0-450); Eosinophils Percent Auto 2.3 % (2-4); Hematocrit 21.5 % (36-46); Hemoglobin 7.2 g/dL (12.0-16.0); Lymphocytes Absolute Auto 700 /uL (1100-4500); Lymphocytes Percent Auto 12.5 % (25-40); Mean Corpuscular HGB Conc 33.6 % (30-36); Mean Corpuscular Volume 110.2 fL (80-100); Monocytes Absolute Auto 700 /uL (0-900); Monocytes Percent Auto 11.4 % (3-14); Neutrophils Absolute Auto 4300 /uL (1500-7000); Neutrophils Percent Auto 72.7 % (50-75); Platelet Count 282 X10^3/uL (150-400); Red Blood Cell Count 1.95 X10^6/uL (4.0-5.2); Red Cell Distribution Width 19.1 % (11.6-14.8); White Blood Cell Count 5.9 X10^3/uL (4.5-11.0)
[2019-04-06 14:19] LABS: Anisocytosis 2+; Hypochromasia 1+; Poikilocytosis 1+
--- NOTE | 2019-04-06 15:08 | PC.NURSE ---
Dr. Mayer reviewed pt's CBC. One unit of blood ordered. Pt would prefer to get unit tomorrow. Dr. mayer aware and agreeable to pt receiving blood tomorrow. IV clamped and secured with netting. Pt education provided to pt r/t low blood counts and blood administration, pt verbalized understanding. Pt scheduled for 10am tomorrow morning. No acute distress noted.
[2019-04-07 11:07] VITALS: BP 132/62; PULSE 72; RESP 20; TEMP 36.4
[2019-04-07 11:29] VITALS: BP 133/61; PULSE 74; RESP 16; TEMP 36.3
[2019-04-07 14:12] VITALS: BP 144/66; PULSE 71; RESP 20; TEMP 36.6
--- NOTE | 2019-06-21 12:24 | ONC.SCHED ---
patient aware of Dr Mayer's passing, would like to wait to be seen here again until after June 2019, she will call at the end of June and schedule a follow up
== END ==
PROVIDERS: PCP Student in an Organized Health Care Education/Training Program
DX: D53.9 Nutritional anemia, unspecified (principal)
CPT/HCPCS: 36415; 36430; 82607; 82746; 83883; 84155; 84165; 85025; 85045; 86140; 86850; 86900; 86901; 99204; 99214; P9016

== ENCOUNTER → 2019-06-15 12:26 | Outpatient (CLI) | payer MEDICARE, OTHER, SELFPAY ==
--- NOTE | 2019-06-15 | DI.MG.S_ITS ---
BILATERAL DIGITAL SCREENING MAMMOGRAM 3D/2D WITH CAD: 06/15/2019 CLINICAL: Routine screening. Comparison is made to exams dated: 04/03/2018 mammogram, 02/09/2017 mammogram, and 02/08/2016 mammogram - [facility]. There are scattered fibroglandular elements in both breasts. Current study was also evaluated with a Computer Aided Detection (CAD) system. There are biopsy clips in the left breast. No significant masses, calcifications, or other findings are seen in either breast. There has been no significant interval change. IMPRESSION: NEGATIVE There is no mammographic evidence of malignancy. A 1 year screening mammogram is recommended. This exam was interpreted at Station ID: [id number]. NOTE: For mammograms, a report in lay terms will be sent to the patient. Approximately 15% of breast malignancies will not be visualized mammographically. In the management of a palpable breast mass, a negative mammogram must not discourage biopsy of a clinically suspicious lesion. Electronically Signed By: Mariella garcia/leonid:06/15/2019 13:10:47 letter sent: Normal Exam ACR BI-RADS Category 1: Negative 3341F
== END ==
PROVIDERS: PCP Student in an Organized Health Care Education/Training Program; Referring Provider Student in an Organized Health Care Education/Training Program; Visit Provider Student in an Organized Health Care Education/Training Program
DX: Z12.31 Encounter for screening mammogram for malignant neoplasm of breast (principal)
CPT/HCPCS: 77063; 77067

== ENCOUNTER → 2019-10-19 10:16 | Outpatient (CLI) | payer MEDICARE, OTHER, SELFPAY ==
[2019-10-19 11:54] LABS: BUN Creatinine Ratio 28.3 (6-22); Blood Urea Nitrogen 34 mg/dL (7-17); Calcium 10.4 mg/dL (8.4-10.2); Carbon Dioxide 31 mmol/L (22-32); Chloride 100 mmol/L (98-107); Cholesterol 180 mg/dL (140-199); Estimated Glomerular Filt Rate 43.3 mL/min (>60); Glucose 121 mg/dL (80-110); HDL Cholesterol 88 mg/dL (40-60); HEMOLYSIS < 15 (0-50); LDL Cholesterol Calculated 68 mg/dL (<100); Sodium 133 mmol/L (137-145); Triglycerides 118 mg/dL (35-150)
[2019-10-19 11:55] LABS: NT-proBNP (BNP-Adult 18+) 1790 pg/mL (<450)
== END ==
PROVIDERS: PCP Student in an Organized Health Care Education/Training Program; Referring Provider Internal Medicine Cardiovascular Disease; Visit Provider Internal Medicine Cardiovascular Disease
DX: I50.22 Chronic systolic (congestive) heart failure (principal); I42.8 Other cardiomyopathies; I10 Essential (primary) hypertension
CPT/HCPCS: 36415; 80048; 80061; 83880

== ENCOUNTER → 2019-10-26 16:43 | Outpatient (CLI) | payer MEDICARE, OTHER, SELFPAY ==
[2019-10-26 17:23] LABS: Hemoglobin 11.5 g/dL (12.0-16.0); Mean Corpuscular HGB Conc 33.9 % (30-36); Mean Corpuscular Hemoglobin 38.3 PG (26-34); Mean Corpuscular Volume 112.9 fL (80-100); Platelet Count 256 X10^3/uL (150-400); Red Blood Cell Count 3.01 X10^6/uL (4.0-5.2); Red Cell Distribution Width 15.6 % (11.6-14.8); White Blood Cell Count 6.9 X10^3/uL (4.5-11.0)
== END ==
PROVIDERS: PCP Student in an Organized Health Care Education/Training Program; Referring Provider Student in an Organized Health Care Education/Training Program; Visit Provider Student in an Organized Health Care Education/Training Program
DX: D64.9 Anemia, unspecified (principal)
CPT/HCPCS: 36415; 85027; 86850; 86900; 86901

== ENCOUNTER → 2019-12-23 14:53 | Outpatient (CLI) | payer MEDICARE, OTHER, SELFPAY ==
--- NOTE | 2019-12-23 15:10 | DI.ECHO.S_ITS ---
Echocardiogram Report + + :Name: NIKKIE CATALAN Study Date: 12/23/2019 Height: 63 in : :[facility] Weight: 122 lb : : Gender: Female BSA: 1.6 m2 : :: 1940 Age: 79 yrs BP: 110/45 mmHg: :Reason For Study: CARDIOMYOPATHY : : Performed By: Wilfredo Moreira : :Referring: PRIETO BOYKIN : + + Interpretation Summary The left ventricle is normal in size. The ejection fraction is estimated to be 40-45%. There has been no significant change in LV EF since the previous exam. The right ventricle is normal in size and function. There is trace tricuspid regurgitation. The right ventricular systolic pressure is estimated to be at least 29 mmHg based on an estimated right atrial pressure of 3 mm Hg. Compared to the prior echo exam, there has been a decrease in the severity of pulmonary hypertension. Mild atherosclerotic plaque(s) in the ascending aorta. Procedure: A two-dimensional transthoracic echocardiogram with color flow and Doppler was performed. The study quality was technically good. Comparison is made with the echocardiogram of 02/23/18. The patient had a bundle branch block rhythm during the exam. The patient was in normal sinus rhythm during the exam. Left Ventricle: The left ventricle is normal in size. There is normal left ventricular wall thickness. There is no thrombus. The ejection fraction is estimated to be 40-45%. There has been no significant change since the previous exam. There is a mild dyssynchronous contraction pattern, consistent with a conduction abnormality. There is mild global hypokinesis of the left ventricle. MV E/A: 0.55 Med Peak E' Mp: 2.7 cm/sec E/E' med: 15.8. Right Ventricle: The right ventricle is normal in size and function. Atria: Both atria are mildly dilated. The left atrium has mildly decreased in size since the prior echo exam. The interatrial septum is intact with no evidence for an atrial septal defect. Mitral Valve: There is mild mitral annular calcification. Redundant elongated chordae are noted. There is trace mitral regurgitation. Aortic Valve: The aortic valve is trileaflet. The aortic valve opens well. No aortic regurgitation is present. Tricuspid Valve: The tricuspid valve is normal. There is trace tricuspid regurgitation. The right ventricular systolic pressure is estimated to be at least 29 mmHg based on an estimated right atrial pressure of 3 mm Hg. Compared to the prior echo exam, there has been a decrease in the severity of pulmonary hypertension. Pulmonic Valve: The pulmonic valve is normal in structure and function. There is trace pulmonic regurgitation. Great Vessels: The aortic root is normal size. The dimensions of the ascending aorta are normal. Mild atherosclerotic plaque(s) in the ascending aorta. The pulmonary artery is normal size. The IVC is of normal diameter and collapses greater than 50% with a sniff. This suggests a low right atrial pressure of 3 mm Hg. Pericardium/ Pleura There is no pericardial effusion. There is no pleural effusion. MMode/2D Measurements & Calculations LVIDd: 4.7 cm LVOT diam: 2.1 cm LVIDs: 3.9 cm Ao root diam: 2.8 cm FS: 17.3 % asc Aorta Diam: 3.1 cm EPSS: 0.58 cm IVSd: 1.0 cm LVPWd: 1.0 cm LV burgess. diameter/BSA (cm/m^2): 3.0 LV sys. diameter/BSA (cm/m^2): 2.5 LA dimension: 3.8 cm RA long axis: 4.3 cm LA A2 area: 20.2 cm2 RA area: 17.4 cm2 LA A4 area: 17.9 cm2 RA vol: 59.9 ml LA length (vol): 5.1 cm RA : 38.2 ml/m2 LA vol: 60.3 ml IVC diam: 1.4 cm LA vol index: 38.5 ml/m2 TAPSE: 2.2 cm Doppler Measurements & Calculations Ao V2 max: 131.0 cm/sec LVOT Max Mp: 89.6 cm/sec Ao V2 mean: 93.5 cm/sec LV V1 max P.2 mmHg Ao max P.9 mmHg LV V1 VTI: 19.4 cm Ao mean P.9 mmHg ELIZABETH(I,D): 2.4 cm2 Ao V2 VTI: 29.2 cm ELIZABETH(V,D): 2.4 cm2 sev ratio: 0.66 ELIZABETH indexed to BSA (cm^2/m^2): 1.5 MV E max mp: 43.3 cm/sec TR max mp: 255.0 cm/sec MV A max mp: 78.3 cm/sec TR max P.0 mmHg MV E/A: 0.55 PA V2 max: 108.8 cm/sec Med Peak E' Mp: 2.7 cm/sec PA V2 mean: 71.4 cm/sec E/E' med: 15.8 PA mean P.3 mmHg Lat Peak E' Mp: 3.1 cm/sec PA pr(Accel): 32.8 mmHg E/E' lat: 14.2 E/e' average: 15.0 MV dec time: 0.22 sec [facility] 68.9 ml Reading Physician:06:17 PM
== END ==
PROVIDERS: PCP Student in an Organized Health Care Education/Training Program; Referring Provider Student in an Organized Health Care Education/Training Program; Visit Provider Internal Medicine Cardiovascular Disease
DX: I42.8 Other cardiomyopathies (principal); I70.0 Atherosclerosis of aorta
CPT/HCPCS: 93306

== ENCOUNTER → 2020-01-12 15:45 | Outpatient (CLI) | payer MEDICARE, OTHER, SELFPAY ==
[2020-01-12 16:55] LABS: BUN Creatinine Ratio 27.4 (6-22); Blood Urea Nitrogen 37 mg/dL (7-17); Calcium 10.2 mg/dL (8.4-10.2); Carbon Dioxide 33 mmol/L (22-32); Chloride 98 mmol/L (98-107); Estimated Glomerular Filt Rate 37.7 mL/min (>60); Glucose 112 mg/dL (80-110); HEMOLYSIS < 15 (0-50); Potassium 4.3 mmol/L (3.4-5.1); Sodium 136 mmol/L (137-145)
== END ==
PROVIDERS: PCP Student in an Organized Health Care Education/Training Program; Referring Provider Internal Medicine Cardiovascular Disease; Visit Provider Internal Medicine Cardiovascular Disease
DX: I50.22 Chronic systolic (congestive) heart failure (principal)
CPT/HCPCS: 36415; 80048

== ENCOUNTER → 2020-01-30 13:19 | Outpatient (CLI) | payer MEDICARE, OTHER, SELFPAY ==
[2020-01-30 14:41] LABS: BUN Creatinine Ratio 24.6 (6-22); Blood Urea Nitrogen 35 mg/dL (7-17); Calcium 9.9 mg/dL (8.4-10.2); Carbon Dioxide 35 mmol/L (22-32); Chloride 98 mmol/L (98-107); Estimated Glomerular Filt Rate 35.6 mL/min (>60); Glucose 91 mg/dL (80-110); HEMOLYSIS < 15 (0-50); Potassium 4.7 mmol/L (3.4-5.1); Sodium 135 mmol/L (137-145)
== END ==
PROVIDERS: PCP Student in an Organized Health Care Education/Training Program; Referring Provider Internal Medicine Cardiovascular Disease; Visit Provider Internal Medicine Cardiovascular Disease
DX: I10 Essential (primary) hypertension (principal)
CPT/HCPCS: 36415; 80048

== ENCOUNTER → 2020-03-30 14:45 | Outpatient (CLI) | payer MEDICARE, OTHER, SELFPAY ==
[2020-03-30 15:44] LABS: BUN Creatinine Ratio 27.4 (6-22); Blood Urea Nitrogen 31 mg/dL (7-17); Calcium 10.3 mg/dL (8.4-10.2); Carbon Dioxide 32 mmol/L (22-32); Chloride 100 mmol/L (98-107); Estimated Glomerular Filt Rate 46.3 mL/min (>60); Glucose 142 mg/dL (80-110); HEMOLYSIS < 15 (0-50); Potassium 4.5 mmol/L (3.4-5.1); Sodium 134 mmol/L (137-145)
== END ==
PROVIDERS: PCP Student in an Organized Health Care Education/Training Program; Referring Provider Internal Medicine Cardiovascular Disease; Visit Provider Internal Medicine Cardiovascular Disease
DX: I44.7 Left bundle-branch block, unspecified (principal)
CPT/HCPCS: 36415; 80048

== ENCOUNTER → 2020-06-19 12:06 | Outpatient (CLI) | payer MEDICARE, OTHER, SELFPAY ==
--- NOTE | 2020-06-19 | DI.MG.S_ITS ---
BILATERAL DIGITAL SCREENING MAMMOGRAM 3D/2D WITH CAD: 06/19/2020 CLINICAL: Routine screening. Comparison is made to exams dated: 06/15/2019 mammogram, 04/03/2018 mammogram, 02/09/2017 mammogram, 02/08/2016 mammogram, and 02/06/2015 mammogram - [facility]. There are scattered fibroglandular elements in both breasts. Current study was also evaluated with a Computer Aided Detection (CAD) system. There are biopsy clips in the left breast. No significant masses, calcifications, or other findings are seen in either breast. There has been no significant interval change. IMPRESSION: NEGATIVE There is no mammographic evidence of malignancy. A 1 year screening mammogram is recommended. This exam was interpreted at Station ID: [id number]. NOTE: For mammograms, a report in lay terms will be sent to the patient. Approximately 15% of breast malignancies will not be visualized mammographically. In the management of a palpable breast mass, a negative mammogram must not discourage biopsy of a clinically suspicious lesion. Electronically Signed By: Javad araujo/leonid:06/19/2020 16:41:19 letter sent: Normal Exam ACR BI-RADS Category 1: Negative 3341F
== END ==
PROVIDERS: PCP Student in an Organized Health Care Education/Training Program; Referring Provider Student in an Organized Health Care Education/Training Program; Visit Provider Student in an Organized Health Care Education/Training Program
DX: Z12.31 Encounter for screening mammogram for malignant neoplasm of breast (principal)
CPT/HCPCS: 77063; 77067

== ENCOUNTER → 2020-09-27 11:18 | Outpatient (CLI) | payer MEDICARE, OTHER, SELFPAY ==
[2020-09-27 14:55] LABS: BUN Creatinine Ratio 28.8 (6-22); Blood Urea Nitrogen 40 mg/dL (7-17); Calcium 10.1 mg/dL (8.4-10.2); Carbon Dioxide 28 mmol/L (22-32); Chloride 101 mmol/L (98-107); Cholesterol 121 mg/dL (140-199); Estimated Glomerular Filt Rate 36.5 mL/min (>60); Glucose 117 mg/dL (80-110); HDL Cholesterol 65 mg/dL (40-60); HEMOLYSIS < 15 (0-50); LDL Cholesterol Calculated 42 mg/dL (<100); Potassium 4.9 mmol/L (3.4-5.1); Sodium 135 mmol/L (137-145); Triglycerides 72 mg/dL (35-150)
== END ==
PROVIDERS: PCP Student in an Organized Health Care Education/Training Program; Referring Provider Internal Medicine Cardiovascular Disease; Visit Provider Internal Medicine Cardiovascular Disease
DX: I65.23 Occlusion and stenosis of bilateral carotid arteries (principal)
CPT/HCPCS: 36415; 80048; 80061

== ENCOUNTER → 2021-03-20 12:53 | Outpatient (CLI) | payer MEDICARE, OTHER, SELFPAY ==
[2021-03-20 16:12] LABS: BUN Creatinine Ratio 18.3 (6-22); Blood Urea Nitrogen 26 mg/dL (7-17); Calcium 9.8 mg/dL (8.4-10.2); Carbon Dioxide 30 mmol/L (22-32); Chloride 99 mmol/L (98-107); Estimated Glomerular Filt Rate 35.5 mL/min (>60); Glucose 133 mg/dL (80-110); HEMOLYSIS < 15 (0-50); Potassium 4.9 mmol/L (3.4-5.1); Sodium 136 mmol/L (137-145)
== END ==
PROVIDERS: PCP Student in an Organized Health Care Education/Training Program; Referring Provider Internal Medicine Cardiovascular Disease; Visit Provider Internal Medicine Cardiovascular Disease
DX: I50.22 Chronic systolic (congestive) heart failure (principal)
CPT/HCPCS: 36415; 80048

== ENCOUNTER → 2021-08-14 13:26 | Outpatient (CLI) | payer MEDICARE, OTHER, SELFPAY ==
--- NOTE | 2021-08-14 | DI.MG.S_ITS ---
BILATERAL DIGITAL SCREENING MAMMOGRAM 3D/2D WITH CAD: 08/14/2021 CLINICAL: Routine screening. Comparison is made to exams dated: 06/19/2020 mammogram, 06/15/2019 mammogram, and 04/03/2018 mammogram - [facility]. There are scattered fibroglandular elements in both breasts. Current study was also evaluated with a Computer Aided Detection (CAD) system. There are biopsy clips in the left breast. No significant masses, calcifications, or other findings are seen in either breast. There has been no significant interval change. IMPRESSION: NEGATIVE There is no mammographic evidence of malignancy. A 1 year screening mammogram is recommended. This exam was interpreted at Station ID: [id number]. NOTE: For mammograms, a report in lay terms will be sent to the patient. Approximately 15% of breast malignancies will not be visualized mammographically. In the management of a palpable breast mass, a negative mammogram must not discourage biopsy of a clinically suspicious lesion. Electronically Signed By: Jaxson Elizondo M.D., jr/leonid:08/14/2021 14:06:19 letter sent: Normal Exam ACR BI-RADS Category 1: Negative 3341F
== END ==
PROVIDERS: PCP Student in an Organized Health Care Education/Training Program; Referring Provider Student in an Organized Health Care Education/Training Program; Visit Provider Student in an Organized Health Care Education/Training Program
DX: Z12.31 Encounter for screening mammogram for malignant neoplasm of breast (principal)
CPT/HCPCS: 77063; 77067

== ENCOUNTER → 2021-09-20 16:43 | Outpatient (CLI) | payer MEDICARE, OTHER, SELFPAY ==
[2021-09-20 17:32] LABS: BUN Creatinine Ratio 20.4 (6-22); Blood Urea Nitrogen 29 mg/dL (7-17); Calcium 9.6 mg/dL (8.4-10.2); Carbon Dioxide 28 mmol/L (22-32); Chloride 100 mmol/L (98-107); Estimated Glomerular Filt Rate 37 mL/min (>60); Glucose 104 mg/dL (80-110); HEMOLYSIS < 15 (0-50); Sodium 136 mmol/L (137-145)
[2021-09-20 17:46] LABS: Potassium 5.4 mmol/L (3.4-5.1)
== END ==
PROVIDERS: PCP Student in an Organized Health Care Education/Training Program; Referring Provider Internal Medicine Cardiovascular Disease; Visit Provider Internal Medicine Cardiovascular Disease
DX: I50.22 Chronic systolic (congestive) heart failure (principal)
CPT/HCPCS: 36415; 80048

== ENCOUNTER → 2021-10-11 13:49 | Outpatient (CLI) | payer MEDICARE, OTHER, SELFPAY ==
[2021-10-11 15:35] LABS: BUN Creatinine Ratio 18.1 (6-22); Blood Urea Nitrogen 26 mg/dL (7-17); Calcium 9.5 mg/dL (8.4-10.2); Carbon Dioxide 29 mmol/L (22-32); Chloride 102 mmol/L (98-107); Estimated Glomerular Filt Rate 37 mL/min (>60); Glucose 124 mg/dL (80-110); HEMOLYSIS < 15 (0-50); Potassium 4.6 mmol/L (3.4-5.1); Sodium 133 mmol/L (137-145)
== END ==
PROVIDERS: PCP Student in an Organized Health Care Education/Training Program; Referring Provider Nurse Practitioner Family; Visit Provider Nurse Practitioner Family
DX: I50.22 Chronic systolic (congestive) heart failure (principal)
CPT/HCPCS: 36415; 80048

== ENCOUNTER 2021-10-29 16:47 | Emergency (ER) | payer MEDICARE, OTHER, SELFPAY ==
[2021-10-29] VITALS (14 sets, daily range): BP systolic 118–137; BP diastolic 58–65; PULSE 84–101; RESP 24–36; TEMP 37.1; O2SAT 81–96; BMI 19.5
--- NOTE | 2021-10-29 16:59 | DI.RAD.S_ITS ---
PROCEDURE: XR CHEST 2V INDICATIONS: shortness of breath TECHNIQUE: 2 views of the chest were acquired. COMPARISON: [facility], CT, CT CHEST W CON, 09/17/2018, 13:34. [facility], CR, CHEST 1 VIEW, 11/20/2016, 14:53. FINDINGS: Surgical changes and devices: None. Lungs and pleura: Lungs are clear, yet hyperexpanded. No pleural effusions or pneumothorax. Mediastinum: The cardiac contours are within normal limits. The aorta demonstrates calcification and tortuosity. Bones and chest wall: No suspicious bony abnormalities. Soft tissues appear unremarkable. IMPRESSION: Hyperexpanded lungs, without an acute cardiopulmonary process identified. Dictated by: Sb Ace M.D. on 10/29/2021 at 17:09 Approved by: Sb Ace M.D. on 10/29/2021 at 17:12
[2021-10-29 17:53] LABS: Add Manual Diff / Slide Review NO; Basophils Absolute Auto 100 /uL (0-100); Basophils Percent Auto 1.3 % (0-2); Eosinophils Absolute Auto 100 /uL (0-450); Eosinophils Percent Auto 1.1 % (2-4); Hematocrit 29.2 % (36-46); Hemoglobin 9.8 g/dL (12.0-16.0); Lymphocytes Absolute Auto 600 /uL (1100-4500); Lymphocytes Percent Auto 7.4 % (25-40); Mean Corpuscular HGB Conc 33.4 % (30-36); Mean Corpuscular Hemoglobin 41.4 PG (26-34); Mean Corpuscular Volume 123.9 fL (80-100); Monocytes Absolute Auto 500 /uL (0-900); Monocytes Percent Auto 6.7 % (3-14); Neutrophils Absolute Auto 6500 /uL (1500-7000); Neutrophils Percent Auto 83.5 % (50-75); Platelet Count 317 X10^3/uL (150-400); Red Blood Cell Count 2.36 X10^6/uL (4.0-5.2); White Blood Cell Count 7.8 X10^3/uL (4.5-11.0)
[2021-10-29 17:59] LABS: INR 1.1 (0.9-1.3); Prothrombin Time 12.5 SECONDS (10.1-12.7)
[2021-10-29 18:05] LABS: Alanine Aminotransferase 32 IU/L (<35); Albumin 3.3 g/dL (3.5-5.0); Alkaline Phosphatase 910 U/L (38-126); Aspartate Aminotransferase 186 IU/L (14-36); BUN Creatinine Ratio 27.3 (6-22); Bilirubin Total 2.2 mg/dL (0.2-1.3); Blood Urea Nitrogen 33 mg/dL (7-17); Calcium 9.7 mg/dL (8.4-10.2); Carbon Dioxide 25 mmol/L (22-32); Chloride 97 mmol/L (98-107); Estimated Glomerular Filt Rate 45 mL/min (>60); Globulin 3.3 g/dL (1.7-4.1); Glucose 114 mg/dL (80-110); HEMOLYSIS 21 (0-50); Potassium 4.7 mmol/L (3.4-5.1); Sodium 130 mmol/L (137-145); Total Protein 6.6 g/dL (6.3-8.2)
[2021-10-29 18:07] LABS: Lactate (Lactic Acid) 1.9 mmol/L (0.7-2.1)
[2021-10-29 18:14] LABS: NT-proBNP (BNP-Adult 18+) 1990 pg/mL (<450)
[2021-10-29 18:40] LABS: Anisocytosis 2+; Macrocytosis 3+; Platelet Estimate Adequate on smear
--- NOTE | 2021-10-29 18:44 | ED_ITS ---
HPI - General Adult General Chief complaint: Shortness of Breath/Dyspnea Stated complaint: difficulty breathin, stomach is hard as a rock Time Seen by Provider: 10/29/21 18:00 Source: patient Mode of arrival: Wheelchair Limitations: no limitations History of Present Illness HPI narrative: Patient is an 81-year-old female who is here for evaluation of several days/weeks of what she describes as declining health. He is had some difficulty breathing. Some abdominal discomfort. Feel like her abdomen is distended. She has a history of Crohn's disease and has been having issues with this recently with regard to diarrhea. Has had decreased oral intake because of her presenting symptoms. No fevers. No chest pain. No lower extremity swelling. No change in medications. No skin rashes. Has not had any coughing. Has very little energy. Is sleeping most of the day. Related Data Home Medications Medication Instructions Recorded Confirmed azathioprine 50 mg tablet 150 mg PO DAILY ##0 08/15/16 07/08/21 aspirin 81 mg tablet,delayed 81 mg DAILY ##0 06/04/17 07/08/21 release carvedilol 3.125 mg tablet (Coreg) 3.125 mg DAILY ##0 06/04/17 07/08/21 ferrous sulfate 325 mg (65 mg 325 mg PO DAILY 01/07/18 07/08/21 iron) tablet torsemide 10 mg tablet 10 mg PO Q OTHER DAY 11/14/20 07/08/21 vedolizumab 300 mg intravenous 300 mg IV Q4W 04/09/21 07/08/21 solution (Entyvio) sacubitril 24 mg-valsartan 26 mg 1 tab PO BID 10/02/21 tablet (Entresto) Previous Rx's Medication Instructions Recorded atorvastatin 20 mg tablet (Lipitor) 20 mg PO QPM #120 tabs 07/25/16 food supplemt, lactose-reduced See Rx Instructions .Route 08/04/18 (Ensure oral liquid) .COMPLEX #10 ea albuterol sulfate 90 mcg/actuation 2 puff inhalation Q6H PRN 04/09/21 aerosol inhaler shortness of breath or wheezing #8.5 grams budesonide-formoterol HFA 80 2 puff inhalation BID #10.2 grams 04/09/21 mcg-4.5 mcg/actuation aerosol inhaler (Symbicort) ipratropium 20 mcg-albuterol 100 1 puff inhalation QID #4 grams 04/09/21 mcg/actuation mist for inhalation levothyroxine 75 mcg tablet 75 mcg PO QDAY #90 tabs 05/27/21 (Synthroid) trazodone 100 mg tablet 100 mg PO BEDTIME #30 tabs 10/10/21 Allergies Allergy/AdvReac Type Severity Reaction Status Date / Time No Known Drug Allergies Allergy Verified 10/29/21 16:58 Review of Systems Review of Systems ROS Unobtainable: All systems reviewed & are unremarkable except as noted in HPI and below Patient History Medical History Anxiety Carpal tunnel syndrome Cataract, right eye CHF (congestive heart failure) Colon polyps COPD (chronic obstructive pulmonary disease) Depression Glaucoma Hearing loss Hiatal hernia Hyperlipidemia Hypertension Hypothyroidism Macular hole Multiple pulmonary nodules (03/20/15) Pulmonary nodules (2009) Scarlet fever Ulcerative colitis Surgical History (Updated 03/22/19 @ 14:48 by Mega Mayer MD) History of carpal tunnel release History of repair of hiatal hernia History of tonsillectomy Hx of cataract surgery Hx of cholecystectomy Hx of colonoscopy with polypectomy Hx of vitrectomy Status post appendectomy Status post hysterectomy Family History (Updated 01/15/18 @ 13:00 by Kiarra Topete LPN) Brother No problems noted. Father No problems noted. Mother Cancer Grandmother Leukemia Social History Smoking Status: Former smoker substance use type: marijuana Smoking Status: Former smoker Substance Use Type: does not use Exam Initial Vital Signs Initial Vital Signs: Vital Signs Temperature 98.7 F 10/29/21 16:51 Pulse Rate 98 H 10/29/21 16:51 Respiratory Rate 24 10/29/21 16:51 Blood Pressure 118/59 L 10/29/21 16:51 Pulse Oximetry 95 10/29/21 16:51 Oxygen Delivery Method 10/29/21 16:51 Const General: cooperative, frail appearing and No ill appearing HENMT Head: normal to inspection and normocephalic Chest Chest: normal inspection of the chest Resp Effort & Inspection: normal respiratory effort Auscultation: clear to auscultation bilaterally Cardio Rate: regular rate Rhythm: regular rhythm GI Inspection: distended Palpation: No firm and tender (Mild diffuse tenderness) Skin General: no rashes or lesions noted Neuro General: patient alert, patient awake, patient oriented x3 and moves all extremities Cognition: normal cognition Speech: speech normal Extrem General: normal to inspection and capillary refill normal Psych Appearance: grossly normal and well kempt Course Orders Ordered: ED Orders 10/29/21 18:45 CT abdomen pelvis w con Stat 10/29/21 20:47 CT chest w con Stat Discontinued Medications Hydrocodone Bitart/Acetaminophen (Hydrocodone/Acet 5/325 Prepack) 1 bottle MISC SEEINSTR ONE Stop: 10/29/21 22:35 Last Admin: 10/29/21 22:43 Dose: 1 bottle Documented By: ALINA Albuterol (Albuterol 2.5 Mg/3 Ml Neb (Adult)) 2.5 mg INH NOW ONE Stop: 10/29/21 18:45 Last Admin: 10/29/21 19:01 Dose: 2.5 mg Documented By: NINA Ondansetron HCl (Ondansetron 4 Mg Odt Prepack) 1 bottle MISC SEEINSTR ONE Stop: 10/29/21 22:35 Last Admin: 10/29/21 22:43 Dose: 1 bottle Documented By: ALINA Vital Signs Vital signs: Vital Signs - 8 hr 10/29/21 19:33 10/29/21 20:00 10/29/21 20:30 Pulse Rate 88 85 84 Respiratory Rate 31 H 26 H 29 H Blood Pressure Pulse Oximetry 94 92 94 10/29/21 21:03 10/29/21 21:30 10/29/21 22:00 Pulse Rate 89 86 86 Respiratory Rate 36 H 34 H Blood Pressure Pulse Oximetry 81 L 93 92 10/29/21 22:19 10/29/21 22:19 10/29/21 22:30 Pulse Rate 98 H 88 Respiratory Rate Blood Pressure 132/65 Pulse Oximetry 92 95 Medical Decision Making Medical Records Medical records reviewed: Yes I reviewed the patient's medical records. Lab Data Lab results reviewed: Yes I reviewed the patient's lab results. Result diagrams: 10/29/21 17:35 10/29/21 17:35 Labs: Lab Results 10/29/21 10/29/21 10/29/21 Range/Units 17:35 17:35 17:35 WBC 7.8 (4.5-11.0) X10^3/uL RBC 2.36 L (4.0-5.2) X10^6/uL Hgb 9.8 L (12.0-16.0) g/dL Hct 29.2 L (36-46) % MCV 123.9 H (80-100) fL MCH 41.4 H (26-34) PG MCHC 33.4 (30-36) % RDW 20.0 H (11.6-14.8) % Plt Count 317 (150-400) X10^3/uL Neut % (Auto) 83.5 H (50-75) % Lymph % (Auto) 7.4 L (25-40) % Garfield % (Auto) 6.7 (3-14) % Eos % (Auto) 1.1 L (2-4) % Baso % (Auto) 1.3 (0-2) % Neut # (Auto) 6500 (5203-2030) /uL Lymph # (Auto) 600 L (2296-2213) /uL Garfield # (Auto) 500 (0-900) /uL Eos # (Auto) 100 (0-450) /uL Baso # (Auto) 100 (0-100) /uL Platelet Estimate Adequate on smear RBC Morphology See below Anisocytosis 2+ H Macrocytosis 3+ H PT (10.1-12.7) SECONDS INR (0.9-1.3) Sodium 130 L (137-145) mmol/L Potassium 4.7 (3.4-5.1) mmol/L Chloride 97 L (98-107) mmol/L Carbon Dioxide 25 (22-32) mmol/L BUN 33 H (7-17) mg/dL Creatinine 1.21 H (0.52-1.04) mg/dL Estimated GFR 45 L (>60) mL/min BUN/Creatinine Ratio 27.3 H (6-22) Glucose 114 H (80-110) mg/dL Lactate 1.9 (0.7-2.1) mmol/L Calcium 9.7 (8.4-10.2) mg/dL Total Bilirubin 2.2 H (0.2-1.3) mg/dL AST 186 H (14-36) IU/L ALT 32 (<35) IU/L Alkaline Phosphatase 910 H (38-126) U/L NT-Pro-B Natriuret Pep (<450) pg/mL Total Protein 6.6 (6.3-8.2) g/dL Albumin 3.3 L (3.5-5.0) g/dL Globulin 3.3 (1.7-4.1) g/dL Albumin/Globulin Ratio 1.0 (1.0-2.8) 10/29/21 10/29/21 Range/Units 17:41 17:41 WBC (4.5-11.0) X10^3/uL RBC (4.0-5.2) X10^6/uL Hgb (12.0-16.0) g/dL Hct (36-46) % MCV (80-100) fL MCH (26-34) PG MCHC (30-36) % RDW (11.6-14.8) % Plt Count (150-400) X10^3/uL Neut % (Auto) (50-75) % Lymph % (Auto) (25-40) % Garfield % (Auto) (3-14) % Eos % (Auto) (2-4) % Baso % (Auto) (0-2) % Neut # (Auto) (5123-5550) /uL Lymph # (Auto) (9985-9352) /uL Garfield # (Auto) (0-900) /uL Eos # (Auto) (0-450) /uL Baso # (Auto) (0-100) /uL Platelet Estimate RBC Morphology Anisocytosis Macrocytosis PT 12.5 (10.1-12.7) SECONDS INR 1.1 (0.9-1.3) Sodium (137-145) mmol/L Potassium (3.4-5.1) mmol/L Chloride (98-107) mmol/L Carbon Dioxide (22-32) mmol/L BUN (7-17) mg/dL Creatinine (0.52-1.04) mg/dL Estimated GFR (>60) mL/min BUN/Creatinine Ratio (6-22) Glucose (80-110) mg/dL Lactate (0.7-2.1) mmol/L Calcium (8.4-10.2) mg/dL Total Bilirubin (0.2-1.3) mg/dL AST (14-36) IU/L ALT (<35) IU/L Alkaline Phosphatase (38-126) U/L NT-Pro-B Natriuret Pep 1990 H (<450) pg/mL Total Protein (6.3-8.2) g/dL Albumin (3.5-5.0) g/dL Globulin (1.7-4.1) g/dL Albumin/Globulin Ratio (1.0-2.8) Imaging Data Chest x-ray: Radiologist's Impression: [address] [address] XRay Report Signed Patient: Narda Flynn MR#: [id number] : 1940 Acct:[id number] Age/Sex: 81 / F Date of Service: 10/29/21 Loc: ED Accession Number: [id number] ?? Procedure: XR chest 2V Ordering Provider: Amara Olsen D.O. PROCEDURE:? XR CHEST 2V ? INDICATIONS:? shortness of breath ? TECHNIQUE:? 2 views of the chest were acquired.? ? COMPARISON:? [facility], CT, CT CHEST W CON, 09/17/2018, 13:34.? [facility], CR, CHEST 1 VIEW, 11/20/2016, 14:53. ? FINDINGS:? ? Surgical changes and devices:? None.? ? Lungs and pleura:? Lungs are clear, yet hyperexpanded.? No pleural effusions or pneumothorax.? ? Mediastinum:? The cardiac contours are within normal limits. The aorta demonstrates calcification and tortuosity. ? Bones and chest wall:? No suspicious bony abnormalities.? Soft tissues appear unremarkable.? ? IMPRESSION:? ? Hyperexpanded lungs, without an acute cardiopulmonary process identified. ? ? Dictated by: Sb Ace M.D. on 10/29/2021 at 17:09 ? ? Approved by: Sb Ace M.D. on 10/29/2021 at 17:12 CT scan - abdomen/pelvis: Radiologist's Impression: Close Chest CT (Signed) Mendez Bloom - 10/29/21 Abdomen/Pelvis CT (Signed) Jerardo Purdy - 10/29/21 Chest X-Ray (Signed) Sb Ace - 10/29/21 Mammogram Screening (Signed) Jaxson Elizondo - 08/14/21 Mammogram Screening (Signed) Javad Joiner - 06/19/20 Echocardiogram Ultrasound (Signed) Luba Daniel - 12/23/19 Mammogram Screening (Signed) Mariella Dupree - 06/15/[address] (Signed) Ricardo Booker - 09/17/18 DI Result CC 09/01/18 DI Result CC 06/15/18 Mammogram Screening (Signed) Mariella Dupree - 04/03/18 Abdomen/Pelvis CT (Signed) Miller Fitch - 12/03/17 Echocardiogram Ultrasound (Signed) Luba Daniel - 09/29/17 Launch?[place] [address] CT Scan Report Signed Patient: Narda Flynn MR#: [id number] : 1940 Acct:[id number] Age/Sex: 81 / F Date of Service: 10/29/21 Loc: ED Accession Number: [id number] ?? Procedure: CT abdomen pelvis w con Ordering Provider: Tommie Esqueda D.O. PROCEDURE:? CT ABDOMEN PELVIS W CON ? INDICATIONS:? History of Crohn's disease, distended abdomen ? TECHNIQUE:? After the administration of intravenous contrast, axial sections acquired from the lung bases to the pubic symphysis.? Coronal and sagittal reformats were performed.? For radiation dose reduction, the following was used:? automated exposure control, adjustment of mA and/or kV according to patient size.? ? COMPARISON:? [facility], CT, CT CHEST W CON, 09/17/2018, 13:34.? [facility], CT, CT ABDOMEN PELVIS W CON, 12/03/2017, 13:03. ? FINDINGS:? Image quality:? Excellent.? ? Lung bases:? No pleural effusion.? Interlobular septal thickening present at the lung bases.? Scattered calcified granulomata redemonstrated at the lung bases.? 1.6 c m soft tissue nodule adjacent to the lower esophagus (series 2, image 3) suspicious for enlarged paraesophageal lymph node.? ? ABDOMEN: Liver:? The liver is enlarged with innumerable masses present in both lobes.? These are new since the most recent prior exam, images of the upper abdomen from the CT chest from 2019. A outreach representative mass or conglomeration of masses is present in segment 3 measuring 4.7 cm (series 2, image 26).? A lesion in segment 6 measures 1.7 cm (series 2, image 22). ?? ? Gallbladder:? Surgically absent.? ? Biliary ducts:? No extrahepatic biliary ductal dilation demonstrated.? Mild intrahepatic ductal dilation likely present in segment 3 upstream to the above described l esion or cluster of lesions. Pancreas:? Unremarkable.? ? Spleen:? Unremarkable.? ? Adrenal Glands:? Unremarkable.? ? Kidneys and Ureters:? No hydronephrosis.? A 6.4 cm cortical or renal sinus cyst is present at the right mid kidney, no imaging follow-up is necessary for this finding per consensus recommendations based on imaging criteria.? Other smaller cortical cysts are present. ? Stomach and Bowel:? No definite evidence of mechanical bowel obstruction.? There are a few areas where the lumen of the colon appears narrowed with wall thickening present, unclear if these represent colonic lesions or areas of peristalsis/decompression, for example at the transverse colon (series 2, image 40). Peritoneum:? Small amount of abdominal and pelvic free fluid present, mostly perihepatic. Abdominal Nodes:? No retroperitoneal or mesenteric adenopathy by size criteria.? Vessels:? Aorta and inferior vena cava are normal in size.? Left splenorenal shunt likely present. ? PELVIS: Pelvic Organs:? The uterus is not visualized and is presumed surgically absent. Bladder:? Unremarkable.? ? Pelvic Nodes: No enlarged lymph nodes.? ? Bones:? Multilevel degenerative change of the visualized spine. ? ? IMPRESSION:? 1. Innumerable hepatic masses are now present, highly suspicious for metastatic disease.? The primary neoplasm is uncertain.? There are a few areas of the colon which may be thickened with luminal narrowing present, findings that can be seen in the setting of a colonic mass, however this could be artifactual related to underdistention or peristalsis.? Sequela of the patient's known Crohn's disease is also possible.? Colonoscopy might be helpful for further evaluation.? 2. A 1.6 cm soft tissue nodule adjacent to the lower esophagus is suspicious for an enlarged paraesophageal lymph node and raises the possibility of thoracic metastatic disease.? CT of the chest may be helpful for further evaluation.? Could also consider PET-CT for workup of presumed metastatic disease. 3. Interlobular septal thickening is present at the imaged lung bases, nonspecific, but could indicate a component of interstitial pulmonary edema. 4. No evidence of high-grade mechanical bowel obstruction.? Dictated by: Jerardo Purdy M.D. on 10/29/2021 at 20:11 ? ? Approved by: Jerardo Purdy M.D. on 10/29/2021 at 20:38? CT scan - chest: Radiologist's Impression: [address] [address] [address] Scan Report Signed Patient: Narda Flynn MR#: [id number] : 1940 Acct:[id number] Age/Sex: 81 / F Date of Service: 10/29/21 Loc: ED Accession Number: [id number] ?? Procedure: CT chest w con Ordering Provider: Tommie Esqueda D.O. PROCEDURE:? CT CHEST W CON ? INDICATIONS:? Ct abd/pelvis shows metastatic disease.? Unsure origin ? TECHNIQUE:? After the administration of intravenous contrast, 5 mm thick sections acquired from the pulmonary apices to the posterior costophrenic angles.? 1 mm axial lung, 5 mm thick coronal and sagittal reformats and 7 mm axial MIP were acquired.? For radiation dose reduction, the following was used:? automated exposure control, adjustment of mA and/or kV according to patient size.? ? COMPARISON:? [facility], CT, CT ABDOMEN PELVIS W CON, 10/29/2021, 19:23.? [facility], CT, CT CHEST W CON, 09/17/2018, 13:34. ? FINDINGS:? Image quality:? Excellent.? ? Lower Neck:? There is a prominent left supraclavicular lymph node measuring up to 0.9 cm on series 2, image 4.? Prominent lymph nodes are also demonstrated at the thoracic inlet including a right parasagittal node measuring 0.9 cm on series 2, image 5. Thyroid:? Visualized thyroid demonstrates no discrete nodules. Axillae: No lymphadenopathy by size criteria. Chest Wall:? Unremarkable.? Bones: Visualized osseous structures demonstrate no suspicious lesions. ? Lungs and Airways:? There is a medial right lower lobe pulmonary nodule measuring up to 1.4 x 1.1 cm on series 3, image 238.? There are indistinct peripheral subpleural opacities within the right middle and lower lobes which are nonspecific.? There is also asymmetric septal thickening and bronchial wall thickening within the right lung base in the right lower and middle lobes.? There are few small scattered pulmonary nodules bilaterally compatible sequelae of old granulomas disease.? Dependent atelectasis is present in the left lung.? There is a minimal amount of dependent mucus within the trachea and mainstem bronchi. Pleura: No pneumothorax or pleural effusions.? ? Heart: Heart size is normal.? No pericardial effusion. Thoracic Vessels: The aorta and pulmonary arteries are normal in size.? Mediastinum and Deana:? There are enlarged confluent bulky mediastinal and right hilar lymph nodes.? These include a outreach representative precarinal aria mass measuring up to 2.5 x 2.2 cm on series 2, image 26. A confluent subcarinal aria mass measures up to 3.5 x 3.5 cm in transverse dimension on series 2, image 30. Student Activities Director enlarged right hilar lymph aria mass measures up to 2.9 x 2.2 cm on series 2, image 31. There is associated encasement of the denzel and bronchovascular structures in the right hilum without high-grade narrowing.? The findings are consistent with metastatic disease. Esophagus: No wall thickening. No hiatal hernia. ? Abdomen:? Visualized upper abdomen redemonstrates innumerable hypoattenuating mass lesions throughout the visualized liver. ? IMPRESSION:? ? 1. Confluent mediastinal and right hilar lymphadenopathy consistent with metastatic disease.? There is associated bronchovascular encasement in the right hilum without high-grade vascular or bronchial narrowing. ? 2. Asymmetric septal thickening in the right lung base with indistinct peripheral opacities.? The findings may represent sequelae of vascular congestion secondary to extrinsic compression or lymphangitic carcinomatosis. ? 3. Right lower lobe pulmonary nodule measuring up to 1.4 cm medially is nonspecific but suggestive of a neoplasm, such as metastatic disease or bronchogenic carcinoma. ? 4. Prominent left supraclavicular and thoracic inlet lymph nodes are nonspecific but suspicious for metastatic disease. ? 5. Multiple hepatic mass lesions redemonstrated within the visualized abdomen consistent with metastatic disease.? ? Dictated by: Mendez Bloom M.D. on 10/29/2021 at 21:40 ? ? Approved by: Mendez Bloom M.D. on 10/29/2021 at 21:52?? ECG Data Attestation: I personally reviewed and interpreted this ECG as follows: Prior ECG tracings: available for review Interpretation: Sinus rhythm Ventricular rate 97 normal axis QRS 1-4 milliseconds Normal QTC Inverted T-waves lead 2 lead 3 AVF V5 V6 EKG today unchanged from EKG dated 11/20/2016 MDM Narrative Medical decision making narrative: Narda has findings on her CT scan today that are very concerning for metastatic disease with what appears to be a primary lung source. Patient does have a history of smoking. She is not having any fevers. Her EKG is unchanged from prior. She is not clinically dehydrated. Is alert oriented x3. Had a long discussion with her and her at bedside regarding the CT scans today in the findings in the concern for metastatic disease. She was instructed that this does require follow-up with her primary doctor most likely referral to see Oncology. I contacted Dr. Esteban who is on-call for the patient's primary doctor who will pass word on to him that the patient does need follow-up. I also sent an e-mail to her primary doctor informing him that follow-up is needed urgently. There is no indication for admission to the hospital today. No indication for antibiotics. A very high suspicion that her symptoms that have been going on for the past couple weeks are because of these findings on the CT scan. The erica barahona and her at bedside expressed understanding and agreement. Discharge Plan Departure Patient Disposition: Home Clinical Impression: Abdominal pain, Weakness, Lesion of liver Activity Restrictions/Additional Instructions: Continue to take all of your medications as directed. I would expect a call from your primary doctor's office over the next 24-[address] scans today are concerning for cancer and you do need very close follow-up with regard to this. If you have not heard from them in the next 48 hours contact their office for follow-up. Return to the emergency department for any new or worsening symptoms. Prescriptions: No Action ferrous sulfate 325 mg (65 mg iron) tablet 325 mg PO DAILY atorvastatin [Lipitor] 20 MG tablet 20 mg PO QPM Qty: 120 3RF azathioprine 50 MG tablet 150 mg PO DAILY Qty: 0 aspirin 81 MG tablet,delayed release (DR/EC) 81 mg DAILY Qty: 0 carvedilol [Coreg] 3.125 MG tablet 3.125 mg DAILY Qty: 0 Ensure liquid See Rx Instructions .ROUTE .COMPLEX Qty: 10 12RF Dose Instruction: Drink 2 cans a day with [employer] ; Rx Instructions: Drink 2 cans a day delivered by [employer] torsemide 10 mg tablet 10 mg PO Q OTHER DAY levothyroxine [Synthroid] 75 mcg tablet 75 mcg PO QDAY Qty: 90 3RF Entresto 24-26 mg tablet 1 tab PO BID trazodone 100 mg tablet 100 mg PO BEDTIME Qty: 30 2RF albuterol sulfate 90 mcg/actuation HFA aerosol inhaler 2 puff inhalation Q6H PRN (Reason: shortness of breath or wheezing) Qty: 8.5 11RF Symbicort 80-4.5 mcg/actuation HFA aerosol inhaler 2 puff INHALATION BID Qty: 10.2 11RF Hold Instructions: Switch to nebulized medications ipratropium-albuterol 20-100 mcg/actuation mist 1 puff INHALATION QID Qty: 4 11RF Hold Instructions: Switch to nebulized medications Entyvio 300 mg recon soln 300 mg IV Q4W Rx Instructions: administer week 6 of treatment Referrals: Roberto West MD [Primary Care Provider] - Visit Report Forms: Patient Portal/API
--- NOTE | 2021-10-29 18:45 | DI.CT.S_ITS ---
PROCEDURE: CT ABDOMEN PELVIS W CON INDICATIONS: History of Crohn's disease, distended abdomen TECHNIQUE: After the administration of intravenous contrast, axial sections acquired from the lung bases to the pubic symphysis. Coronal and sagittal reformats were performed. For radiation dose reduction, the following was used: automated exposure control, adjustment of mA and/or kV according to patient size. COMPARISON: [facility], CT, CT CHEST W CON, 09/17/2018, 13:34. [facility], CT, CT ABDOMEN PELVIS W CON, 12/03/2017, 13:03. FINDINGS: Image quality: Excellent. Lung bases: No pleural effusion. Interlobular septal thickening present at the lung bases. Scattered calcified granulomata redemonstrated at the lung bases. 1.6 cm soft tissue nodule adjacent to the lower esophagus (series 2, image 3) suspicious for enlarged paraesophageal lymph node. ABDOMEN: Liver: The liver is enlarged with innumerable masses present in both lobes. These are new since the most recent prior exam, images of the upper abdomen from the CT chest from 2019. A door to door sales representative mass or conglomeration of masses is present in segment 3 measuring 4.7 cm (series 2, image 26). A lesion in segment 6 measures 1.7 cm (series 2, image 22). Gallbladder: Surgically absent. Biliary ducts: No extrahepatic biliary ductal dilation demonstrated. Mild intrahepatic ductal dilation likely present in segment 3 upstream to the above described lesion or cluster of lesions. Pancreas: Unremarkable. Spleen: Unremarkable. Adrenal Glands: Unremarkable. Kidneys and Ureters: No hydronephrosis. A 6.4 cm cortical or renal sinus cyst is present at the right mid kidney, no imaging follow-up is necessary for this finding per consensus recommendations based on imaging criteria. Other smaller cortical cysts are present. Stomach and Bowel: No definite evidence of mechanical bowel obstruction. There are a few areas where the lumen of the colon appears narrowed with wall thickening present, unclear if these represent colonic lesions or areas of peristalsis/decompression, for example at the transverse colon (series 2, image 40). Peritoneum: Small amount of abdominal and pelvic free fluid present, mostly perihepatic. Abdominal Nodes: No retroperitoneal or mesenteric adenopathy by size criteria. Vessels: Aorta and inferior vena cava are normal in size. Left splenorenal shunt likely present. PELVIS: Pelvic Organs: The uterus is not visualized and is presumed surgically absent. Bladder: Unremarkable. Pelvic Nodes: No enlarged lymph nodes. Bones: Multilevel degenerative change of the visualized spine. IMPRESSION: 1. Innumerable hepatic masses are now present, highly suspicious for metastatic disease. The primary neoplasm is uncertain. There are a few areas of the colon which may be thickened with luminal narrowing present, findings that can be seen in the setting of a colonic mass, however this could be artifactual related to underdistention or peristalsis. Sequela of the patient's known Crohn's disease is also possible. Colonoscopy might be helpful for further evaluation. 2. A 1.6 cm soft tissue nodule adjacent to the lower esophagus is suspicious for an enlarged paraesophageal lymph node and raises the possibility of thoracic metastatic disease. CT of the chest may be helpful for further evaluation. Could also consider PET-CT for workup of presumed metastatic disease. 3. Interlobular septal thickening is present at the imaged lung bases, nonspecific, but could indicate a component of interstitial pulmonary edema. 4. No evidence of high-grade mechanical bowel obstruction. Dictated by: Jerardo Purdy M.D. on 10/29/2021 at 20:11 Approved by: Jerardo Purdy M.D. on 10/29/2021 at 20:38
[2021-10-29] MEDS: ALBUTEROL 2.5 MG/3 ML NEB (ADULT) INH (19:01)
--- NOTE | 2021-10-29 20:47 | DI.CT.S_ITS ---
PROCEDURE: CT CHEST W CON INDICATIONS: Ct abd/pelvis shows metastatic disease. Unsure origin TECHNIQUE: After the administration of intravenous contrast, 5 mm thick sections acquired from the pulmonary apices to the posterior costophrenic angles. 1 mm axial lung, 5 mm thick coronal and sagittal reformats and 7 mm axial MIP were acquired. For radiation dose reduction, the following was used: automated exposure control, adjustment of mA and/or kV according to patient size. COMPARISON: [facility], CT, CT ABDOMEN PELVIS W CON, 10/29/2021, 19:23. [facility], CT, CT CHEST W CON, 09/17/2018, 13:34. FINDINGS: Image quality: Excellent. Lower Neck: There is a prominent left supraclavicular lymph node measuring up to 0.9 cm on series 2, image 4. Prominent lymph nodes are also demonstrated at the thoracic inlet including a right parasagittal node measuring 0.9 cm on series 2, image 5. Thyroid: Visualized thyroid demonstrates no discrete nodules. Axillae: No lymphadenopathy by size criteria. Chest Wall: Unremarkable. Bones: Visualized osseous structures demonstrate no suspicious lesions. Lungs and Airways: There is a medial right lower lobe pulmonary nodule measuring up to 1.4 x 1.1 cm on series 3, image 238. There are indistinct peripheral subpleural opacities within the right middle and lower lobes which are nonspecific. There is also asymmetric septal thickening and bronchial wall thickening within the right lung base in the right lower and middle lobes. There are few small scattered pulmonary nodules bilaterally compatible sequelae of old granulomas disease. Dependent atelectasis is present in the left lung. There is a minimal amount of dependent mucus within the trachea and mainstem bronchi. Pleura: No pneumothorax or pleural effusions. Heart: Heart size is normal. No pericardial effusion. Thoracic Vessels: The aorta and pulmonary arteries are normal in size. Mediastinum and Deana: There are enlarged confluent bulky mediastinal and right hilar lymph nodes. These include a sales representative facility services precarinal aria mass measuring up to 2.5 x 2.2 cm on series 2, image 26. A confluent subcarinal aria mass measures up to 3.5 x 3.5 cm in transverse dimension on series 2, image 30. Career Technical Education Teacher enlarged right hilar lymph aria mass measures up to 2.9 x 2.2 cm on series 2, image 31. There is associated encasement of the denzel and bronchovascular structures in the right hilum without high-grade narrowing. The findings are consistent with metastatic disease. Esophagus: No wall thickening. No hiatal hernia. Abdomen: Visualized upper abdomen redemonstrates innumerable hypoattenuating mass lesions throughout the visualized liver. IMPRESSION: 1. Confluent mediastinal and right hilar lymphadenopathy consistent with metastatic disease. There is associated bronchovascular encasement in the right hilum without high-grade vascular or bronchial narrowing. 2. Asymmetric septal thickening in the right lung base with indistinct peripheral opacities. The findings may represent sequelae of vascular congestion secondary to extrinsic compression or lymphangitic carcinomatosis. 3. Right lower lobe pulmonary nodule measuring up to 1.4 cm medially is nonspecific but suggestive of a neoplasm, such as metastatic disease or bronchogenic carcinoma. 4. Prominent left supraclavicular and thoracic inlet lymph nodes are nonspecific but suspicious for metastatic disease. 5. Multiple hepatic mass lesions redemonstrated within the visualized abdomen consistent with metastatic disease. Dictated by: Mendez Bloom M.D. on 10/29/2021 at 21:40 Approved by: Mendez Bloom M.D. on 10/29/2021 at 21:52
[2021-10-29] MEDS: HYDROCODONE/ACET 5/325 PREPACK 1 BOTTLE MISC (22:43)
[2021-10-29] MEDS: ONDANSETRON 4 MG ODT PREPACK 1 BOTTLE MISC (22:43)
== END 2021-10-29 22:55 | disposition home or self-care (01) ==
PROVIDERS: Emergency Medicine; Emergency Provider Emergency Medicine; PCP Student in an Organized Health Care Education/Training Program
DX: K76.9 Liver disease, unspecified (principal); R10.9 Unspecified abdominal pain; R53.1 Weakness; R06.02 Shortness of breath; C34.90 Malignant neoplasm of unspecified part of unspecified bronchus or lung; Z87.19 Personal history of other diseases of the digestive system
CPT/HCPCS: 36415; 71046; 71260; 74177; 80053; 83605; 83880; 85025; 85610; 93005; 93010; 94640; 99284; J7613; Q9967

== ENCOUNTER 2021-11-02 09:38 | Inpatient (IN) | payer MEDICARE, OTHER, SELFPAY ==
[2021-11-02] VITALS (8 sets, daily range): BP systolic 95–109; BP diastolic 38–63; PULSE 65–91; RESP 14–20; TEMP 36.3; O2SAT 94–100; BMI 20.2
--- NOTE | 2021-11-02 09:51 | DI.RAD.S_ITS ---
PROCEDURE: XR CHEST 1V INDICATIONS: chest pain TECHNIQUE: One view of the chest was acquired. COMPARISON: [facility], CR, XR CHEST 2V, 10/29/2021, 17:00. FINDINGS: Surgical changes and devices: None. Lungs and pleura: There is hyperinflation and chronic interstitial changes without focal infiltrate, pleural effusion or pneumothorax. Mediastinum: Mediastinal contours appear normal. Heart size is normal. Atherosclerotic vascular calcification noted in the aortic arch. Bones and chest wall: No suspicious bony lesions. Overlying soft tissues appear unremarkable. IMPRESSION: Hyperinflation and chronic interstitial changes, stable from the prior Approved by: Bernardo Yao M.D. on 11/02/2021 at 11:29
--- NOTE | 2021-11-02 10:52 | DI.CT.S_ITS ---
PROCEDURE: CT HEAD/BRAIN WO CON INDICATIONS: Fall/injury TECHNIQUE: Noncontrast 5 mm thick angled axial sections acquired from the foramen magnum to the vertex, with coronal and sagittal reformats. For radiation dose reduction, the following was used: automated exposure control, adjustment of mA and/or kV according to patient size. COMPARISON: None. FINDINGS: Image quality: Metallic spray artifact from bilateral hearing aids limits assessment multiple images CSF spaces: Basal cisterns are patent. No extra-axial fluid collections. Ventricles are normal in size and shape. Brain: No midline shift. No intracranial masses or hemorrhage. Bhatt-white matter interface is normal. Moderate cerebral and cerebellar volume loss with multifocal white matter chronic ischemic change noted. Skull and face: Calvarium and visualized facial bones are intact, without suspicious lesions. Bilateral intraocular lens replacements noted. Sinuses: Visualized sinuses and mastoids are clear. IMPRESSION: Atrophy and chronic ischemic change without intracranial hemorrhage or mass effect. Approved by: Bernardo Yao M.D. on 11/02/2021 at 11:43
--- NOTE | 2021-11-02 10:52 | DI.RAD.S_ITS ---
PROCEDURE: XR KNEE LT 3V INDICATIONS: Pain/injury TECHNIQUE: 3 views of the knee were acquired. COMPARISON: None. FINDINGS: Bones: No fractures or dislocations. No suspicious bony lesions. Soft tissues: No joint effusion. No suspicious soft tissue calcifications. IMPRESSION: Unremarkable left knee radiographs Approved by: Bernardo Yao M.D. on 11/02/2021 at 11:39
--- NOTE | 2021-11-02 10:56 | ED_ITS ---
HPI - Weakness General Chief complaint: Weakness Stated complaint: Weakness Time Seen by Provider: 11/02/21 10:45 Source: EMS Mode of arrival: EMS History of Present Illness HPI Narrative: Patient here for worsening weakness and oral intake. Patient just seen here 4 days ago for decline in health. Findings on imaging advance lung cancer with widespread metastatic cyst. Was sent home. Did follow-up with Dr. Roberto Baldersa 2 days ago. Was prescribed pain medication. At this time it appears that patient may be under hospice care as she states she was told only 3-6 months to live. She got weak and fell down today. Hit her left knee and left side of her scalp. Not on blood thinners. No loss of consciousness. Otherwise no recent illness Related Data Home Medications Medication Instructions Recorded Confirmed azathioprine 50 mg tablet 150 mg PO DAILY ##0 08/15/16 10/31/21 torsemide 10 mg tablet 10 mg PO Q OTHER DAY 11/14/20 10/31/21 vedolizumab 300 mg intravenous 300 mg IV Q4W 04/09/21 10/31/21 solution (Entyvio) sacubitril 24 mg-valsartan 26 mg 1 tab PO BID 10/02/21 10/31/21 tablet (Entresto) ferrous sulfate 325 mg (65 mg 325 mg PO Q OTHER DAY 10/31/21 10/31/21 iron) tablet Previous Rx's Medication Instructions Recorded food supplemt, lactose-reduced See Rx Instructions .Route 08/04/18 (Ensure oral liquid) .COMPLEX #10 ea albuterol sulfate 90 mcg/actuation 2 puff inhalation Q6H PRN 04/09/21 aerosol inhaler shortness of breath or wheezing #8.5 grams budesonide-formoterol HFA 80 2 puff inhalation BID #10.2 grams 04/09/21 mcg-4.5 mcg/actuation aerosol inhaler (Symbicort) ipratropium 20 mcg-albuterol 100 1 puff inhalation QID #4 grams 04/09/21 mcg/actuation mist for inhalation levothyroxine 75 mcg tablet 75 mcg PO QDAY #90 tabs 05/27/21 (Synthroid) trazodone 100 mg tablet 100 mg PO BEDTIME #30 tabs 10/10/21 ondansetron 4 mg disintegrating 4 mg PO Q8H PRN nausea and 10/31/21 tablet vomiting #90 tabs oxycodone-acetaminophen 5 mg-325 1 tab PO BID PRN pain #14 tabs 10/31/21 mg tablet Allergies Allergy/AdvReac Type Severity Reaction Status Date / Time No Known Drug Allergies Allergy Verified 10/31/21 11:02 Review of Systems Review of Systems Narrative: GENERAL: Denies chills, positive for fatigue, malaise, negative fever, sweats. HEENT: Denies sinus pain, ear pain, sore throat RESPIRATORY: Denies dyspnea, cough CARDIOVASCULAR: Denies chest pain, palpitations GASTROINTESTINAL: Denies nausea, vomiting, abdominal pain : Denies dysuria, frequency, hematuria MUSCULOSKELETAL: Positive for muscle or bony pain SKIN: Denies rash, skin lesions NEUROLOGIC: Denies weakness, numbness ROS Unobtainable: All systems reviewed & are unremarkable except as noted in HPI and below Patient History Medical History Anxiety Carpal tunnel syndrome Cataract, right eye CHF (congestive heart failure) Colon polyps COPD (chronic obstructive pulmonary disease) Depression Glaucoma Hearing loss Hiatal hernia Hyperlipidemia Hypertension Hypothyroidism Macular hole Multiple pulmonary nodules (03/20/15) Pulmonary nodules (2009) Scarlet fever Ulcerative colitis Surgical History (Updated 03/22/19 @ 14:48 by Mega Mayer MD) History of carpal tunnel release History of repair of hiatal hernia History of tonsillectomy Hx of cataract surgery Hx of cholecystectomy Hx of colonoscopy with polypectomy Hx of vitrectomy Status post appendectomy Status post hysterectomy Family History (Updated 01/15/18 @ 13:00 by Kiarra Topete LPN) Brother No problems noted. Father No problems noted. Mother Cancer Grandmother Leukemia Social History household members: spouse Smoking Status: Former smoker substance use type: marijuana Smoking Status: Former smoker alcohol intake frequency: 0-2 drinks per day Substance Use Type: does not use Exam Initial Vital Signs Initial Vital Signs: Vital Signs Temperature 97.3 F L 11/02/21 09:52 Pulse Rate 86 11/02/21 09:52 Respiratory Rate 18 11/02/21 09:52 Blood Pressure 109/55 L 11/02/21 09:52 Pulse Oximetry 94 11/02/21 09:52 Oxygen Delivery Method 11/02/21 09:52 Course Course Course Narrative: No new issues during course of stay Decision to Admit Date: 11/02/21 Decision to Admit time: 12:31 Orders Ordered: ED Orders 11/02/21 10:38 Complete Blood Count AUTO DIFF Stat Comprehensive Metabolic Panel Stat Lipase Stat Magnesium Stat Troponin & CK Cardiac Panel Stat 11/02/21 10:52 CT head/brain wo con Stat XR knee LT 3V Stat 11/02/21 11:48 COVID19 -Nasal RAPID/Pre-Proc Stat Acetaminophen (Acetaminophen 325 Mg Tablet) 650 mg PO Q6HR PRN PRN Reason: Fever/Mild Pain (1-3) Albuterol (Albuterol Hfa Mdi 60 Puff/8 Gm Inhaler) 2 puff INH Q6H PRN PRN Reason: shortness of breath or wheezing Dexamethasone (Dexamethasone 4 Mg Tablet) 4 mg PO BIDWM BÁRBARA Docusate Sodium (Docusate 100 Mg Capsule) 100 mg PO BID BÁRBARA Sodium Chloride (Normal Saline 0.45%) 1,000 mls @ 100 mls/hr IV CONT BÁRBARA Stop: 12/03/21 04:32 Ondansetron HCl (Ondansetron 4 Mg Odt) 4 mg PO Q8H PRN PRN Reason: nausea and vomiting Oxycodone HCl (Oxycodone Ir 5 Mg Tablet) 5 mg PO Q4HR PRN PRN Reason: Pain, Moderate (4-6) Oxycodone HCl (Oxycodone Ir 10 Mg Tablet) 10 mg PO Q4HR PRN PRN Reason: Pain, Severe (7-10) Pantoprazole Sodium (Pantoprazole Dr 20 Mg Tablet) 20 mg PO 0600 [facility] Sennosides (Sennosides 8.6 Mg Tablet) 17.2 mg PO BEDTIME BÁRBARA Discontinued Medications Sodium Chloride (Normal Saline 0.9%) 1,000 mls @ 1,000 mls/hr IV BOLUS ONE Stop: 11/02/21 12:26 Last Infusion: 11/02/21 14:58 Dose: 0 mls/hr Documented By: Admin: 11/02/21 12:51 Dose: 1,000 mls/hr Documented By: VAUGHN Sodium Chloride (Normal Saline 0.9%) 1,000 mls @ 1,000 mls/hr IV BOLUS ONE Stop: 11/02/21 13:54 Last Infusion: 11/02/21 14:59 Dose: 0 mls/hr Documented By: Admin: 11/02/21 13:50 Dose: 1,000 mls/hr Documented By: VAUGHN Morphine Sulfate (Morphine 4 Mg/Ml Inj) 4 mg IV NOW ONE Stop: 11/02/21 10:53 Last Admin: 11/02/21 11:25 Dose: 4 mg Documented By: VAUGHN Ondansetron HCl (Ondansetron 4 Mg/2 Ml Inj) 4 mg IV NOW ONE Stop: 11/02/21 10:53 Last Admin: 11/02/21 11:25 Dose: 4 mg Documented By: VAUGHN Reevaluation(s) Reevaluation #1: Updated patient results and she does agree for admit. Consultations Consultation #1: Spoke with Dr. Joseph, hospitalist, will admit Time: 12:31 Vital Signs Vital signs: Vital Signs - 8 hr 11/02/21 11:46 11/02/21 12:20 11/02/21 12:30 Pulse Rate 80 79 Respiratory Rate 14 Blood Pressure 100/51 L 103/51 L Pulse Oximetry 97 100 Oxygen Delivery Method Nasal Cannula Oxygen Flow Rate 2 11/02/21 12:30 Pulse Rate 79 Respiratory Rate Blood Pressure Pulse Oximetry 99 Oxygen Delivery Method Oxygen Flow Rate MDM - Weakness Differential Diagnosis Differential diagnosis: Likely anemia, sepsis and dehydration Lab Data Result diagrams: 11/02/21 10:38 11/02/21 10:38 Labs: Lab Results 11/02/21 11/02/21 11/02/21 Range/Units 10:38 10:38 11:48 WBC 6.5 (4.5-11.0) X10^3/uL RBC 2.15 L (4.0-5.2) X10^6/uL Hgb 9.0 L (12.0-16.0) g/dL Hct 26.5 L (36-46) % MCV 123.1 H (80-100) fL MCH 42.1 H (26-34) PG MCHC 34.2 (30-36) % RDW 20.5 H (11.6-14.8) % Plt Count 238 (150-400) X10^3/uL Neut % (Auto) 85.9 H (50-75) % Lymph % (Auto) 5.4 L (25-40) % [place] % (Auto) 5.7 (3-14) % Eos % (Auto) 1.2 L (2-4) % Baso % (Auto) 1.8 (0-2) % Neut # (Auto) 5600 (0824-7034) /uL Lymph # (Auto) 400 L (8768-2413) /uL [place] # (Auto) 400 (0-900) /uL Eos # (Auto) 100 (0-450) /uL Baso # (Auto) 100 (0-100) /uL RBC Morphology Not Reportable Anisocytosis 3+ H Microcytosis 1+ H Macrocytosis 3+ H Sodium 128 L (137-145) mmol/L Potassium 5.1 (3.4-5.1) mmol/L Chloride 97 L (98-107) mmol/L Carbon Dioxide 23 (22-32) mmol/L BUN 61 H (7-17) mg/dL Creatinine 3.36 H (0.52-1.04) mg/dL Estimated GFR 13 L (>60) mL/min BUN/Creatinine Ratio 18.2 (6-22) Glucose 101 (80-110) mg/dL Calcium 9.1 (8.4-10.2) mg/dL Magnesium 2.3 (1.6-2.3) mg/dL Total Bilirubin 1.7 H (0.2-1.3) mg/dL AST 190 H (14-36) IU/L ALT 33 (<35) IU/L Alkaline Phosphatase 992 H (38-126) U/L Total Creatine Kinase 172 H (30-135) U/L CK-MB (CK-2) 1.25 (<2.37) ng/mL CK-MB (CK-2) Rel Index 0.7 L (1.5-5.0) % Troponin I 0.023 (0.01-0.034) ng/mL Total Protein 5.9 L (6.3-8.2) g/dL Albumin 2.9 L (3.5-5.0) g/dL Globulin 3.0 (1.7-4.1) g/dL Albumin/Globulin Ratio 1.0 (1.0-2.8) Lipase 205 (23-300) U/L SARS-CoV-2 (PCR) Negative (Negative) Imaging Data Chest x-ray: Radiologist Impression: [address] [address] XRay Report Signed Patient: Narda Flynn MR#: [id number] : 1940 Acct:[id number] Age/Sex: 81 / F Date of Service: 11/02/21 Loc: ED Accession Number: [id number] ?? Procedure: XR chest 1V Ordering Provider: Quintin Peguero MD PROCEDURE:? XR CHEST 1V ? INDICATIONS:? chest pain ? TECHNIQUE:? One view of the chest was acquired.? ? COMPARISON:? [facility], CR, XR CHEST 2V, 10/29/2021, 17:00. ? FINDINGS:? ? Surgical changes and devices:? None.? ? Lungs and pleura:? There is hyperinflation and chronic interstitial changes without focal infiltrate, pleural effusion or pneumothorax. ? Mediastinum:? Mediastinal contours appear normal.? Heart size is normal.? Atherosclerotic vascular calcification noted in the aortic arch. ? Bones and chest wall:? No suspicious bony lesions.? Overlying soft tissues appear unremarkable.? ? IMPRESSION:? Hyperinflation and chronic interstitial changes, stable from the prior ? ? ? Approved by: Bernardo Yao M.D. on 11/02/2021 at 11:29? CT scan - head: Radiologist Impression: [address] [address] [address] Scan Report Signed Patient: Narda Flynn MR#: [id number] : 1940 Acct:[id number] Age/Sex: 81 / F Date of Service: 11/02/21 Loc: ED Accession Number: [id number] ?? Procedure: CT head/brain wo con Ordering Provider: Quintin Peguero MD PROCEDURE:? CT HEAD/BRAIN WO CON ? INDICATIONS:? Fall/injury ? TECHNIQUE:? Noncontrast 5 mm thick angled axial sections acquired from the foramen magnum to the vertex, with coronal and sagittal reformats.? For radiation dose reduction, the following was used:? automated exposure control, adjustment of mA and/or kV according to patient size.? ? COMPARISON:? None. ? FINDINGS:? Image quality:? Metallic spray artifact from bilateral hearing aids limits assessment multiple images ? CSF spaces:? Basal cisterns are patent.? No extra-axial fluid collections.? Ventricles are normal in size and shape.? ? Brain:? No midline shift.? No intracranial masses or hemorrhage.? Bahtt-white matter interface is normal.? Moderate cerebral and cerebellar volume loss with multifocal white matter chronic ischemic change noted. ? Skull and face:? Calvarium and visualized facial bones are intact, without suspicious lesions.? Bilateral intraocular lens replacements noted. ? Sinuses:? Visualized sinuses and mastoids are clear.? ? IMPRESSION:? Atrophy and chronic ischemic change without intracranial hemorrhage or mass effect. ? ? ? Approved by: Bernardo Yao M.D. on 11/02/2021 at 11:43? Extremity x-ray #1: Radiologist Impression: [address] [address] XRay Report Signed Patient: Narda Flynn MR#: [id number] : 1940 Acct:[id number] Age/Sex: 81 / F Date of Service: 11/02/21 Loc: ED Accession Number: [id number] ?? Procedure: XR knee LT 3V Ordering Provider: Quintin Peguero MD PROCEDURE:? XR KNEE LT 3V ? INDICATIONS:? Pain/injury ? TECHNIQUE:? 3 views of the knee were acquired.? ? COMPARISON:? None. ? FINDINGS:? ? Bones:? No fractures or dislocations.? No suspicious bony lesions.? ? Soft tissues:? No joint effusion.? No suspicious soft tissue calcifications.? ? ? IMPRESSION:? Unremarkable left knee radiographs ? ? ? Approved by: Bernardo Yao M.D. on 11/02/2021 at 11:39? ECG Data Interpretation: Sinus rhythm rate [address] elevation or depression MDM Narrative Medical decision making narrative: Appropriate for admission. Blood pressure slightly low/soft. Compared to previous blood pressures. Not toxic or septic. Renal function changes in 4 days likely dehydration. Review with hospitalist and agrees for admit Discharge Plan Departure Patient Disposition: Admitted As Inpatient Clinical Impression: Dehydration Admit Date/Time: 11/02/21 12:52 Admit Provider: Imelda Joseph
[2021-11-02 10:59] LABS: Alanine Aminotransferase 33 IU/L (<35); Albumin 2.9 g/dL (3.5-5.0); Alkaline Phosphatase 992 U/L (38-126); Aspartate Aminotransferase 190 IU/L (14-36); BUN Creatinine Ratio 18.2 (6-22); Bilirubin Total 1.7 mg/dL (0.2-1.3); Blood Urea Nitrogen 61 mg/dL (7-17); Calcium 9.1 mg/dL (8.4-10.2); Carbon Dioxide 23 mmol/L (22-32); Chloride 97 mmol/L (98-107); Creatine Kinase 172 U/L (30-135); Estimated Glomerular Filt Rate 13 mL/min (>60); Glucose 101 mg/dL (80-110); HEMOLYSIS < 15 (0-50); Lipase 205 U/L (23-300); Magnesium 2.3 mg/dL (1.6-2.3); Potassium 5.1 mmol/L (3.4-5.1); Sodium 128 mmol/L (137-145); Total Protein 5.9 g/dL (6.3-8.2)
[2021-11-02 11:10] LABS: Add Manual Diff / Slide Review NO; Basophils Absolute Auto 100 /uL (0-100); Basophils Percent Auto 1.8 % (0-2); Eosinophils Absolute Auto 100 /uL (0-450); Eosinophils Percent Auto 1.2 % (2-4); Hematocrit 26.5 % (36-46); Lymphocytes Absolute Auto 400 /uL (1100-4500); Lymphocytes Percent Auto 5.4 % (25-40); Mean Corpuscular HGB Conc 34.2 % (30-36); Mean Corpuscular Hemoglobin 42.1 PG (26-34); Mean Corpuscular Volume 123.1 fL (80-100); Monocytes Absolute Auto 400 /uL (0-900); Monocytes Percent Auto 5.7 % (3-14); Neutrophils Absolute Auto 5600 /uL (1500-7000); Neutrophils Percent Auto 85.9 % (50-75); Platelet Count 238 X10^3/uL (150-400); Red Blood Cell Count 2.15 X10^6/uL (4.0-5.2); Red Cell Distribution Width 20.5 % (11.6-14.8); Troponin I 0.023 ng/mL (0.01-0.034); White Blood Cell Count 6.5 X10^3/uL (4.5-11.0)
[2021-11-02 11:13] LABS: CKMB % Relative Index 0.7 % (1.5-5.0); Creatine Kinase MB 1.25 ng/mL (<2.37)
[2021-11-02] MEDS: ONDANSETRON 4 MG/2 ML INJ IV (11:25)
[2021-11-02] MEDS: MORPHINE 4 MG/ML INJ IV (11:25)
[2021-11-02 11:50] LABS: Anisocytosis 3+; Macrocytosis 3+; Microcytosis 1+
[2021-11-02 12:19] LABS: COVID19 -Nasal RAPID Negative (Negative)
[2021-11-02] MEDS: SODIUM CHLORIDE 0.9% 1,000 ML 1000 ML IV ×2 (12:51→13:50)
[2021-11-02 14:07] LABS: Appearance Urine UA CLEAR; Bilirubin Urine UA NEGATIVE (NEGATIVE); Color Urine UA YELLOW; Glucose Urine UA NEGATIVE (Negative); Ketones Urine UA TRACE (NEGATIVE); Leukocyte Esterase Urine UA 1+ (NEGATIVE); Nitrite Urine UA NEGATIVE (Negative); Occult Blood Urine UA 1+ (Negative); Protein Urine UA 2+ (Negative)
[2021-11-02 14:17] LABS: Bacteria Urine Many (>30); Culture Indicated Urine Specimen Cultured; RBC Urine 5-10/HPF (0-5/HPF); Squamous Epithelial Cell Urine 0-1 /HPF (0-5/HPF); Transitional Epi Cells Urine 1-5/HPF (0-5/HPF); WBC Urine 30-100/HPF (0-5/HPF)
--- NOTE | 2021-11-02 15:06 | PC.NURSE ---
Spoke to her : He stated that 4 days ago she got the cancer diagnosis. They don't understand what a POLST or advanced directive is but he thinks he talked with DR. DAYL about end of life care. He stated that she has been confused for the last 4 days and not herself.
--- NOTE | 2021-11-02 18:19 | PM.HP.1 ---
History of Present Illness History of Present Illness Date Patient Seen: 11/02/21 Chief complaint: Weakness Narrative: 81-year-old female with underlying Crohn's disease, hypothyroidism, COPD, hyperlipidemia, congestive heart failure, hypertension, mixed hyperlipidemia, hypothyroidism, bilateral carotid artery stenosis, and recent diagnosis of metastatic disease felt to be lung cancer who presented to the emergency department today with weakness, falls, and poor oral intake. Patient had been feeling poorly for several weeks. She presented to the emergency department on October 29. As part of that evaluation she underwent imaging of her abdomen and pelvis due to complaints of abdominal pain and her known Crohn disease history. Abdominal CT revealed innumerable hepatic metastases. She subsequently underwent a chest CT which did show evidence of mediastinal and hilar adenopathy as well as the right lower lobe pulmonary nodule. Patient was discharged home with plan to follow up with her primary care provider Dr. West. She did see Dr. West yesterday and after lengthy discussion, he gave her a POLST form to complete and discussed referral to Oncology. She states she did take several oxycodone with some relief yesterday. However, today she notes that she just felt too poorly to stay home. She has now had a chance to think about it further about things. She states that she does want to be a DNR. She also reports she has no interest in pursuing chemotherapy or other palliative treatment. At this point, she would like to pursue hospice. She states she has discussed her diagnosis with her family and they are all supportive. She notes that her is having difficulty providing her care. She does have 2 younger siblings in their 60s who live in [facility] who may be able to help, she also has a stepdaughter in [place] who may be able to assist with her care at home. Patient History Medical History Anxiety Carpal tunnel syndrome Cataract, right eye CHF (congestive heart failure) Colon polyps COPD (chronic obstructive pulmonary disease) Depression Glaucoma Hearing loss Hiatal hernia Hyperlipidemia Hypertension Hypothyroidism Macular hole Multiple pulmonary nodules (03/20/15) Pulmonary nodules (2009) Scarlet fever Ulcerative colitis Surgical History (Updated 03/22/19 @ 14:48 by Mega Mayer MD) History of carpal tunnel release History of repair of hiatal hernia History of tonsillectomy Hx of cataract surgery Hx of cholecystectomy Hx of colonoscopy with polypectomy Hx of vitrectomy Status post appendectomy Status post hysterectomy Comment: Past medical history: As above, additionally metastatic malignancy, likely lung primary with right lower lobe pulmonary nodule, lymphadenopathy, and hepatic involvement Family & Social History Family History (Updated 01/15/18 @ 13:00 by Kiarra Topete LPN) Brother No problems noted. Father No problems noted. Mother Cancer Grandmother Leukemia Social History: household members spouse Prior Living Arrangements House Safety & Behavioral: Feels Safe in Current Yes Environment Been Physically Hurt or No Threatened By a Person Tobacco & Substance use: Smoking Status Former smoker alcohol intake frequency 0-2 drinks per day Substance Use Type does not use Comment: Patient was a heavy smoker for many years, quit 1 year ago Meds Home Medications and Allergies Home Medications Medication Instructions Recorded Confirmed Type azathioprine 50 mg tablet 150 mg PO DAILY ##0 08/15/16 10/31/21 History food supplemt, lactose-reduced See Rx Instructions .Route 08/04/18 10/31/21 Rx (Ensure oral liquid) .COMPLEX #10 ea torsemide 10 mg tablet 10 mg PO Q OTHER DAY 11/14/20 10/31/21 History albuterol sulfate 90 mcg/actuation 2 puff inhalation Q6H PRN 04/09/21 10/31/21 Rx aerosol inhaler shortness of breath or wheezing #8.5 grams budesonide-formoterol HFA 80 2 puff inhalation BID #10.2 grams 04/09/21 10/31/21 Rx mcg-4.5 mcg/actuation aerosol inhaler (Symbicort) ipratropium 20 mcg-albuterol 100 1 puff inhalation QID #4 grams 04/09/21 10/31/21 Rx mcg/actuation mist for inhalation vedolizumab 300 mg intravenous 300 mg IV Q4W 04/09/21 10/31/21 History solution (Entyvio) levothyroxine 75 mcg tablet 75 mcg PO QDAY #90 tabs 05/27/21 10/31/21 Rx (Synthroid) sacubitril 24 mg-valsartan 26 mg 1 tab PO BID 10/02/21 10/31/21 History tablet (Entresto) trazodone 100 mg tablet 100 mg PO BEDTIME #30 tabs 10/10/21 10/31/21 Rx ferrous sulfate 325 mg (65 mg 325 mg PO Q OTHER DAY 10/31/21 10/31/21 History iron) tablet ondansetron 4 mg disintegrating 4 mg PO Q8H PRN nausea and 10/31/21 10/31/21 Rx tablet vomiting #90 tabs oxycodone-acetaminophen 5 mg-325 1 tab PO BID PRN pain #14 tabs 10/31/21 10/31/21 Rx mg tablet Allergies Allergy/AdvReac Type Severity Reaction Status Date / Time No Known Drug Allergies Allergy Verified 10/31/21 11:02 Review of Systems Review of Systems Narrative: All other systems were reviewed negative Exam Vital Signs (past 8 hours): - 11/02/21 11:46 11/02/21 12:20 11/02/21 12:30 Pulse Rate 80 79 Respiratory Rate 14 Blood Pressure 100/51 L 103/51 L Pulse Oximetry 97 100 Oxygen Delivery Method Nasal Cannula Oxygen Flow Rate 2 11/02/21 12:30 11/02/21 13:00 11/02/21 13:00 Pulse Rate 79 84 Respiratory Rate Blood Pressure 100/55 L Pulse Oximetry 99 99 Oxygen Delivery Method Oxygen Flow Rate 11/02/21 13:30 11/02/21 13:30 11/02/21 14:23 Pulse Rate 65 Respiratory Rate Blood Pressure 104/63 Pulse Oximetry 98 Oxygen Delivery Method Nasal Cannula Oxygen Flow Rate Oxygen Delivery Method Nasal Cannula Oxygen Flow Rate 2 Narrative Exam Narrative: GEN: Elderly female, Alert and oriented x3, hearing impaired, no acute distress HEENT: Normocephalic, face symmetric, pupils equal round reactive to light, extraocular movements intact, sclerae anicteric, conjunctiva clear, nares patent, oropharynx reveals an intact soft and hard palate with moist mucous membranes, dentition is fair NECK: Supple, no lymphadenopathy, thyroid without enlargement or nodularity, carotids no bruits CHEST: Respiratory excursions symmetric, clear to auscultation bilaterally CV: Regular rate and rhythm, no murmurs, rubs, gallops, PMI nondisplaced ABD: Soft, right upper quadrant tenderness, nondistended, bowel sounds present in all 4 quadrants, no organomegalyappreciated EXTR: Warm, well perfused, no clubbing/cyanosis/edema SKIN: Warm and dry, without rash NEURO: Alert and oriented x3, grossly intact PSYCH: Mood and affect is within normal limits, judgment and insight are appropriate Objective Labs Result Diagrams: 11/02/21 10:38 11/02/21 10:38 Labs: Laboratory Results - last 24 hr 11/02/21 11/02/21 11/02/21 10:38 10:38 11:48 WBC 6.5 RBC 2.15 L Hgb 9.0 L Hct 26.5 L MCV 123.1 H MCH 42.1 H MCHC 34.2 RDW 20.5 H Plt Count 238 Neut % (Auto) 85.9 H Lymph % (Auto) 5.4 L [place] % (Auto) 5.7 Eos % (Auto) 1.2 L Baso % (Auto) 1.8 Neut # (Auto) 5600 Lymph # (Auto) 400 L [place] # (Auto) 400 Eos # (Auto) 100 Baso # (Auto) 100 RBC Morphology Not Reportable Anisocytosis 3+ H Microcytosis 1+ H Macrocytosis 3+ H Sodium 128 L Potassium 5.1 Chloride 97 L Carbon Dioxide 23 BUN 61 H Creatinine 3.36 H Estimated GFR 13 L BUN/Creatinine Ratio 18.2 Glucose 101 Calcium 9.1 Magnesium 2.3 Total Bilirubin 1.7 H AST 190 H ALT 33 Alkaline Phosphatase 992 H Total Creatine Kinase 172 H CK-MB (CK-2) 1.25 CK-MB (CK-2) Rel Index 0.7 L Troponin I 0.023 Total Protein 5.9 L Albumin 2.9 L Globulin 3.0 Albumin/Globulin Ratio 1.0 Lipase 205 Urine Color Urine Appearance Urine pH Ur Specific [employer] Urine Protein Urine Glucose (UA) Urine Ketones Urine Occult Blood Urine Nitrate Urine Bilirubin Urine Urobilinogen Ur Leukocyte Esterase Urine RBC Urine WBC Ur Squamous Epith Cells Ur Transition Epith Cell Urine Bacteria Ur Culture Indicated? SARS-CoV-2 (PCR) Negative 11/02/21 14:02 WBC RBC Hgb Hct MCV MCH MCHC RDW Plt Count Neut % (Auto) Lymph % (Auto) [place] % (Auto) Eos % (Auto) Baso % (Auto) Neut # (Auto) Lymph # (Auto) [place] # (Auto) Eos # (Auto) Baso # (Auto) RBC Morphology Anisocytosis Microcytosis Macrocytosis Sodium Potassium Chloride Carbon Dioxide BUN Creatinine Estimated GFR BUN/Creatinine Ratio Glucose Calcium Magnesium Total Bilirubin AST ALT Alkaline Phosphatase Total Creatine Kinase CK-MB (CK-2) CK-MB (CK-2) Rel Index Troponin I Total Protein Albumin Globulin Albumin/Globulin Ratio Lipase Urine Color Yellow Urine Appearance Clear Urine pH 5.0 Ur Specific [employer] 1.020 Urine Protein 2+ H Urine Glucose (UA) Negative Urine Ketones Trace H Urine Occult Blood 1+ H Urine Nitrate Negative Urine Bilirubin Negative Urine Urobilinogen 1.0 Ur Leukocyte Esterase 1+ H Urine RBC 5-10/hpf H Urine WBC 30-100/hpf H Ur Squamous Epith Cells 0-1 /hpf Ur Transition Epith Cell 1-5/hpf Urine Bacteria Many (>30) H Ur Culture Indicated? Specimen cultured SARS-CoV-2 (PCR) Assessment & Plan Assessment & Plan narrative: 1. Acute kidney injury Creatinine was 1.21 on October 29, now up to 3.36. BUN is up 61. Patient is clinically dehydrated and has reported decreased oral intake. Will continue gentle IV fluids. Recheck labs in the morning. 2. Intractable pain secondary to new diagnosis of metastatic likely lung cancer Will continue oxycodone 5-10 mg every 4 hours as needed. Will also add dexamethasone 4 mg b.i.d.. This may help with her liver capsule pain. 3. Metastatic disease, likely primary lung Patient has longstanding history of tobacco use. She does have a lung nodule as well as liver mass and mediastinal adenopathy. At this point in time she does not wish to pursue further diagnosis. Will make a hospice referral to [facility] with hopes of getting her pain managed and her renal function improved with discharge and admission to hospice. 4. Crohn's disease Patient has been on IV infusions every 8 weeks. She finds them to be ineffective. She was due to have another infusion in the coming weeks but states she no longer will pursue this. Await medication reconciliation as med history shows azathioprine as 1 of her home meds 5. COPD No evidence exacerbation. Continue usual home medications once meds have been reconciled 6. Hypothyroidism Once medications have been reconciled will resume thyroid replacement 7. Hyperlipidemia Can likely discontinue her statin given goals of care 8. Congestive heart failure new line await medication reconciliation. Will plan to resume her usual meds. 9. Hyponatremia Secondary to ARLENE. Will monitor. Code status DNR DNI Prophylaxis Deferred in the setting of her goals of care Disposition Plan to discharge home once ARLENE has improved and hospice referral arrangements made. Time Spent With Patient Critical Care time: I spent a total of [] minutes of critical care time on this patient's care today; this time is exclusive of procedural time. Quality VTE Deep Vein Thrombosis/Pulmonary Embolism Present on Admission: No
--- NOTE | 2021-11-02 19:28 | PC.NURSE ---
admit from ED: dx: lung ca w/ mets, sustained a fall at home today. all XR negative for fx. patient is a/o, voices needs. very [place], has h/a in place. can understand w/ loud clear voice and direct visual of the speakers face. amplifier provided at 1900, this has been helpful. hernandez catheter, has a UTI. scant urine, fluids started. 1/2 NS at 100/hour. b/p is low, chronically low per family. call to daughter Celina, update given. plan for hospice consult. report to ELOISE Owens NOC.
[2021-11-02] MEDS: dexAMETHasone 4 MG TABLET PO (19:50)
[2021-11-02] MEDS: OXYCODONE IR 5 MG TABLET PO (19:53)
[2021-11-02] MEDS: SODIUM CHLORIDE 0.45% 1,000 ML 100 ML IV (19:57)
[2021-11-02] MEDS: DOCUSATE 100 MG CAPSULE PO (21:30)
[2021-11-02] MEDS: SENNOSIDES 8.6 MG TABLET 17.2 MG PO (21:30)
[2021-11-03 03:36] VITALS: BP 98/40; PULSE 87; RESP 15; TEMP 36; O2SAT 95
[2021-11-03] MEDS: SODIUM CHLORIDE 0.45% 1,000 ML 100 ML IV (04:55)
[2021-11-03 06:09] LABS: Basophils Absolute Auto 0 /uL (0-100); Basophils Percent Auto 0.5 % (0-2); Eosinophils Absolute Auto 0 /uL (0-450); Hematocrit 24.8 % (36-46); Hemoglobin 8.3 g/dL (12.0-16.0); Lymphocytes Absolute Auto 200 /uL (1100-4500); Lymphocytes Percent Auto 3.2 % (25-40); Mean Corpuscular HGB Conc 33.4 % (30-36); Mean Corpuscular Hemoglobin 42.1 PG (26-34); Mean Corpuscular Volume 126.1 fL (80-100); Monocytes Absolute Auto 100 /uL (0-900); Neutrophils Absolute Auto 5000 /uL (1500-7000); Neutrophils Percent Auto 94.3 % (50-75); Platelet Count 196 X10^3/uL (150-400); Red Blood Cell Count 1.97 X10^6/uL (4.0-5.2); Red Cell Distribution Width 20.9 % (11.6-14.8); White Blood Cell Count 5.3 X10^3/uL (4.5-11.0)
[2021-11-03 06:12] LABS: Add Manual Diff / Slide Review SLIDE REVIEW; BUN Creatinine Ratio 17.8 (6-22); Blood Urea Nitrogen 59 mg/dL (7-17); Calcium 8.1 mg/dL (8.4-10.2); Carbon Dioxide 17 mmol/L (22-32); Chloride 101 mmol/L (98-107); Estimated Glomerular Filt Rate 13 mL/min (>60); Glucose 108 mg/dL (80-110); HEMOLYSIS < 15 (0-50); Sodium 127 mmol/L (137-145)
[2021-11-03 06:23] LABS: Potassium 5.5 mmol/L (3.4-5.1)
[2021-11-03 07:00] VITALS: BP 93/37; PULSE 75; RESP 16; TEMP 36.1; O2SAT 91; O2SAT 92
[2021-11-03 07:27] LABS: Anisocytosis 2+; Macrocytosis 2+
[2021-11-03] MEDS: ACETAMINOPHEN 325 MG TABLET 650 MG PO (09:01)
[2021-11-03] MEDS: PANTOPRAZOLE DR 20 MG TABLET PO (09:02)
[2021-11-03] MEDS: dexAMETHasone 4 MG TABLET PO ×2 (09:02→17:39)
[2021-11-03] MEDS: OXYCODONE IR 5 MG TABLET PO (10:57)
--- NOTE | 2021-11-03 11:24 | CM.DANOTE ---
Addendum entered by Cielo Lemus R.N. 11/03/21 14:21: [facility] Spoke to Vicki at hospice about referral. She will attempt to get equipment delivered tomorrow, and start may not occur until at least Thu, or later in the week. Dr. Espinal was having a conversation with patient's spouse, and daughter, Celina, about hospice. She reiterated that they do not provide caregivers, and that they will need to work on sharing caregiving with family members. Dr. Espinal mentioned, she may not have much time left. Gave spouse the hospice brochure. Patient was in her room moaning while they were turning her. Will need to ensure that patient has comfort meds on board at discharge. Original Note: DCP: Case received, EMR reviewed and met with patient. Introduced self and role. Was able to speak to , Roberto, to obtain information regarding patient's baseline activity level at home prior to hospitalization. DCP assessment completed with information currently available. Patient is an 81 year old female who admitted yesterday afternoon to the care of the hospitalist team. PCP: Dr. West. Payer: confirmed: Medicare/[employer]. Patient came to the hospital via ambulance secondary to a ground level fall that occurred at home. According to ER notes, patient had noted worsening weakness and oral intake. Patient had been seen about 4 days ago for decline in health. Patient was noted to have advanced lung cancer with widespread metastatic cyst. She did go home, and followed up with Dr. West, and was prescribed pain medication. Notes indicated patient was under hospice care, as she has 3-6 months to live, but this DC Institutional Research Coordinator confirmed with [facility] that they do not currently have the referral. Patient had gotten weak, and sustained a fall at home. According to H&P, patient wants to be a DNR, and in interested in hospice care. Patient holds current diagnosis of acute kidney injury, intractable pain secondary to new diagnosis of metastatic lung cancer. Checked on patient, she was moaning and sleeping. Was able to contact , Roberto, for further information. Patient resides here in [place] with spouse, Roberto. Their daughter, Celina, is currently staying with them, and lives in [place]. Her phone number is: [phone]. She also has other siblings who live in [facility] who may be able to assist when patient goes home. Discussed hospice. Daughter, Celina, was in the home, and also talked to her. Spouse indicated, he was on board with hospice, but really didn't know much about it. Explained hospice services to spouse and daughter, and let them know that services are covered by Medicare, including equipment, nursing, pain meds, incontinent supplies, bath aide, and CLINICAL REHAB SPECIALIST, as well as spiritual counselor. Let them know that hospice does not provide caregivers, in some cases, respite care. Let them know that this DC Institutional Research Coordinator can initiate referral, and will follow up with phone frederic today, and that spouse would be getting an info visit. Confirmed with them that the goal is to get her home on hospice. Will work on equipment delivery as well. Did check with charge nurse, Akbar, about allowing spouse and daughter, Celina, to visit together in this case, which they may be willing to do. P: DCP will initiate hospice referral, and will fax and follow up with phone call to see when equipment can be delivered, and when nursing can open. Cielo Lemus RN/Laboratory Technology Teacher Discharge Planning/Care Management CM Discharge Assessment Start: 11/03/21 11:20 Freq: Status: Active Protocol: Document 11/03/21 11:21 (Rec: 11/03/21 11:23 [id number]) Discharge Planning Assessment Assigned Key Carrier Cielo Lemus RN/Laboratory Technology Teacher Advance Directives? No History Provided By Patient,Medical Record Prior Living Arrangements House Household Members spouse Type of transporation used prior to Relies on Others admit Independent with ADL's Yes Is patient alert and oriented? Yes Needs Assistance With Home Chores / Shopping Caregiver for Another No DME Already Rented / Owned FWW / Walker Comment Home with Hospice Comment Family being able to care for her at home, daughter can stay until Wed. Discharge Plan Hospice Transportation Arrangement Family, if able, or may need to go ambulance Referrals Initiated Other Additional Comment Will send referral to [facility] Updated in Patient Room with Yes name and ext. # of Key Carrier Review Status In Process Next Review Type Continued Stay Review
--- NOTE | 2021-11-03 13:11 | P.PN_ITS ---
Subjective Subjective Date Patient Seen: 11/03/21 Interval history: 81-year-old female with Crohn's disease, hypothyroidism, COPD, hyperlipidemia, CHF, hypertension, mixed hyperlipidemia, hypothyroidism, bilateral carotid artery stenosis, and recent diagnosis of metastatic lung cancer who was admitted yesterday with weakness, falls, poor oral intake, ARLENE and pain related to her new malignancy. She was placed on oxycodone as needed for pain as well as dexamethasone to help reduce her liver capsular pain. She complains of having had a bad night. She reports she slept poorly overall. Describes her pain today as moderate. Does seem somewhat confused as she is talking about needing help with the dishes and seems to have difficulty tracking some of her conversation. RN note she only had 100 cc of urine output overnight. Jacobsen catheter to be placed. Case Management has spoken to the patient's stepdaughter who lives in [place] and she is available to help with caregiving in the home through November 06. Exam Vital Signs (past 8 hours): - 11/03/21 07:00 Temperature 96.9 F L Pulse Rate 75 Respiratory Rate 16 Blood Pressure 93/37 L Pulse Oximetry 91 Oxygen Flow Rate 0 Oxygen Delivery Method Nasal Cannula Oxygen Flow Rate 0 Narrative Exam Narrative: GEN:? Elderly female, Alert and oriented x3, hearing impaired, no acute distress HEENT:? Normocephalic, face symmetric NECK:? Supple, no lymphadenopathy CHEST:? Respiratory excursions symmetric, coarse with mild crackles diffusely CV:? Regular rate and rhythm, no murmurs, rubs, gallops, PMI nondisplaced ABD:? Soft, right upper quadrant tenderness, mildly distended, bowel sounds present in all 4 quadrants, no organomegaly appreciated EXTR:? Warm, well perfused, no clubbing/cyanosis, trace bilateral lower extremity edema SKIN:? Warm and dry, without rash NEURO:? Alert and oriented x2, grossly intact Objective Labs Result Diagrams: 11/03/21 05:46 11/03/21 05:46 Labs: Laboratory Results - last 24 hr 11/02/21 11/03/21 11/03/21 14:02 05:46 05:46 WBC 5.3 RBC 1.97 L Hgb 8.3 L Hct 24.8 L MCV 126.1 H D MCH 42.1 H MCHC 33.4 RDW 20.9 H Plt Count 196 Neut % (Auto) 94.3 H Lymph % (Auto) 3.[address] [place] % (Auto) 2.0 L Eos % (Auto) 0.0 L Baso % (Auto) 0.5 Neut # (Auto) 5000 Lymph # (Auto) [address] [place] # (Auto) 100 Eos # (Auto) 0 Baso # (Auto) 0 RBC Morphology See below Anisocytosis 2+ H Macrocytosis 2+ H Sodium 127 L Potassium 5.5 H Chloride 101 Carbon Dioxide 17 L BUN 59 H Creatinine 3.32 H Estimated GFR 13 L BUN/Creatinine Ratio 17.8 Glucose 108 Calcium 8.1 L Urine Color Yellow Urine Appearance Clear Urine pH 5.0 Ur Specific [place] 1.020 Urine Protein 2+ H Urine Glucose (UA) Negative Urine Ketones Trace H Urine Occult Blood 1+ H Urine Nitrate Negative Urine Bilirubin Negative Urine Urobilinogen 1.0 Ur Leukocyte Esterase 1+ H Urine RBC 5-10/hpf H Urine WBC 30-100/hpf H Ur Squamous Epith Cells 0-1 /hpf Ur Transition Epith Cell 1-5/hpf Urine Bacteria Many (>30) H Ur Culture Indicated? Specimen cultured [facility] Medical History Anxiety Carpal tunnel syndrome Cataract, right eye CHF (congestive heart failure) Colon polyps COPD (chronic obstructive pulmonary disease) Depression Glaucoma Hearing loss Hiatal hernia Hyperlipidemia Hypertension Hypothyroidism Macular hole Multiple pulmonary nodules (03/20/15) Pulmonary nodules (2009) Scarlet fever Ulcerative colitis Surgical History (Updated 03/22/19 @ 14:48 by Mega Mayer MD) History of carpal tunnel release History of repair of hiatal hernia History of tonsillectomy Hx of cataract surgery Hx of cholecystectomy Hx of colonoscopy with polypectomy Hx of vitrectomy Status post appendectomy Status post hysterectomy Family History (Updated 01/15/18 @ 13:00 by Kiarra Topete LPN) Brother No problems noted. Father No problems noted. Mother Cancer Grandmother Leukemia Social History household members: spouse Smoking Status: Former smoker substance use type: marijuana Assessment & Plan Assessment & Plan narrative: 1. Acute kidney injury Creatinine was 1.21 on October 29, 3.36 on admission, BUN 61.? BUN is up 61. Manny barahona appeared clinically dehydrated on admission. She was placed on IV fluids. Creatinine is 3.32 today, BUN fairly unchanged at 59, potassium elevated at 5.5, now oliguric. No evidence of pelvic obstruction or pelvic malignancy, no evidence of hydronephrosis on imaging. She received 2 L of IV fluids. As she is beginning to sound a bit congested, will saline lock IV at this time. 2. Intractable pain secondary to new diagnosis of metastatic likely lung cancer Will continue oxycodone 5-10 mg every 4 hours as needed.? Continue dexamethasone 4 mg b.i.d. she describes her pain as moderate today.. 3. Metastatic disease, likely primary lung Patient has longstanding history of tobacco use.? She does have a lung nodule as well as liver mass and mediastinal adenopathy.? At this point in time she does not wish to pursue further diagnosis.? Hospice referral in process. She will need DME delivered to the home prior to discharge. 4. Crohn's disease Patient has been on IV infusions every 8 weeks.? She finds them to be ineffective.? She was due to have another infusion in the coming weeks but states she no longer will pursue this.? Medication history shows azathioprine as 1 of her home meds. Meds have not yet been reconciled. 5. COPD No evidence exacerbation.? Continue usual home medications once meds have been reconciled 6. Hypothyroidism Once medications have been reconciled will resume thyroid replacement 7. Hyperlipidemia Can likely discontinue her statin given goals of care 8. Chronic systolic Congestive heart failure She is on torsemide at baseline. As noted, she had evidence of ARLENE on admission. Given no response to IV fluids, this may be sales representative womens health of [employer]. She does have some pulmonary vascular congestion today. She is not symptomatic. Will plan to resume torsemide tomorrow. 9. Hyponatremia Suspect this is SIADH rather than due to hypovolemia. Sodium is 127 today. Code status DNR DNI Prophylaxis Deferred in the setting of her goals of care Disposition Plan to discharge home once hospice referral/DME delivery can be accomplished ? Time Spent With Patient Critical Care time: I spent a total of [] minutes of critical care time on this patient's care today; this time is exclusive of procedural time. Quality VTE Deep Vein Thrombosis/Pulmonary Embolism Present on Admission: No
--- NOTE | 2021-11-03 19:16 | PC.NURSE ---
family and MD conferred, patient will go on hospice. bed to be delivered tomorrow. Wilfredo and Celina daughter here to visit. patient is drowsy, confusion waxes and wanes. pain controlled w/ prn tylenol x 1 and oxycodone x1. hernandez is patent, draining small amount dark gifty urine. loose stools, abd distended and encouraged to turn. prefers to lay supine. small foam dressing applied to left ear, has a small 2mm pressure scab that she picks at. h/a need charging, will bring front end specialist tomorrow. currently using an amplifier for communication, as well as reading lips. appears to be comfortable at this time. KATJA
[2021-11-03 19:30] VITALS: O2SAT 94
[2021-11-03 19:35] VITALS: BP 96/38; PULSE 85; RESP 18; TEMP 36.3; O2SAT 93
[2021-11-03] MEDS: LORazepam 2 MG/ML ORAL SOL 0.5 MG PO (21:36)
--- NOTE | 2021-11-03 22:41 | PC.NURSE ---
Patient is oriented except did not know age, birthdate or why she is in the hospital. Very [place] and does not currently have hearing aids here. Breath sounds CTA with RA sat of 93%. HRR. BP trending low and was 96/38 on last check. Denied nausea. BT present and abdomen is soft but appears distended; previous RN reported patient having loose stools and does have Crohn's. Indwelling catheter is patent but has had low urine output. Is moving herself in bed and has set off bed alarm several times and staff find her sitting up in bed with legs thrown out the side. Seems anxious and wanting to know if it is a.m. or p.m. and why no one is coming to take her home; medicated with Ativan and is currently asleep. Gait not assessed at this time. SCD's left off so as not to increase her anxiety. Denied pain. Fall risk score is high and bed alarm is activated.
--- NOTE | 2021-11-04 05:20 | PM.PN.1 ---
Subjective Subjective Date Patient Seen: 11/04/21 Interval history: 81-year-old female with Crohn's disease, hypothyroidism, COPD, hyperlipidemia, CHF, hypertension, mixed hyperlipidemia, hypothyroidism, bilateral carotid artery stenosis, and recent diagnosis of metastatic lung cancer who was admitted yesterday with weakness, falls, poor oral intake, ARLENE and pain related to her new malignancy.? She was placed on oxycodone as needed for pain as well as dexamethasone to help reduce her liver capsular pain. Patient had a difficult day yesterday. She was more confused overall. Somewhat agitated. Kept asking where she was and when she would be picked up to be brought home. She tells me she slept okay overnight. She remains nearly anuric. She denies any pain or shortness of breath. Exam Vital Signs (past 8 hours): - 11/03/21 21:50 Oxygen Delivery Method Room Air Oxygen Delivery Method Room Air Oxygen Flow Rate 0 Narrative Exam Narrative: GEN:? Elderly female, Alert, mildly confused, hearing impaired, no acute distress HEENT:? Normocephalic, face symmetric NECK:? Supple, no lymphadenopathy CHEST:? Respiratory excursions symmetric, clear to auscultation bilaterally CV:? Regular rate and rhythm, no murmurs, rubs, gallops, PMI nondisplaced ABD:? Soft, right upper quadrant tenderness, mildly distended, bowel sounds present in all 4 quadrants, no organomegaly appreciated EXTR:? Warm, well perfused, no clubbing/cyanosis, or edema SKIN:? Warm and dry, without rash NEURO:? Alert and oriented x1, grossly intact Objective Labs Result Diagrams: 11/03/21 05:46 11/03/21 05:46 Labs: Laboratory Results - last 24 hr 11/03/21 11/03/21 05:46 05:46 WBC 5.3 RBC 1.97 L Hgb 8.3 L Hct 24.8 L MCV 126.1 H D MCH 42.1 H MCHC 33.4 RDW 20.9 H Plt Count 196 Neut % (Auto) 94.3 H Lymph % (Auto) 3.2 L Carson % (Auto) 2.0 L Eos % (Auto) 0.0 L Baso % (Auto) 0.5 Neut # (Auto) 5000 Lymph # (Auto) 200 L Carson # (Auto) 100 Eos # (Auto) 0 Baso # (Auto) 0 RBC Morphology See below Anisocytosis 2+ H Macrocytosis 2+ H Sodium 127 L Potassium 5.5 H Chloride 101 Carbon Dioxide 17 L BUN 59 H Creatinine 3.32 H Estimated GFR 13 L BUN/Creatinine Ratio 17.8 Glucose 108 Calcium 8.1 L PFSH Medical History Anxiety Carpal tunnel syndrome Cataract, right eye CHF (congestive heart failure) Colon polyps COPD (chronic obstructive pulmonary disease) Depression Glaucoma Hearing loss Hiatal hernia Hyperlipidemia Hypertension Hypothyroidism Macular hole Multiple pulmonary nodules (03/20/15) Pulmonary nodules (2009) Scarlet fever Ulcerative colitis Surgical History (Updated 03/22/19 @ 14:48 by Mega Mayer MD) History of carpal tunnel release History of repair of hiatal hernia History of tonsillectomy Hx of cataract surgery Hx of cholecystectomy Hx of colonoscopy with polypectomy Hx of vitrectomy Status post appendectomy Status post hysterectomy Family History (Updated 01/15/18 @ 13:00 by Kiarra Topete LPN) Brother No problems noted. Father No problems noted. Mother Cancer Grandmother Leukemia Social History household members: spouse Smoking Status: Former smoker substance use type: marijuana Assessment & Plan Assessment & Plan narrative: 1. Acute kidney injury Creatinine was 1.21 on October 29, 3.36 on admission, BUN 61.? BUN is up 61.? Patient appeared clinically dehydrated on admission.? She was placed on IV fluids.? Creatinine is 3.32 today, BUN fairly unchanged at 59, potassium elevated at 5.5, now oliguric.? No evidence of pelvic obstruction or pelvic malignancy, no evidence of hydronephrosis on imaging.? She received 2 L of IV fluids but these were discontinued as patient developed pulmonary congestion. The she is nearly aneuric at this time. As goals are comfort, no further interventions planned. 2. Intractable pain secondary to new diagnosis of metastatic likely lung cancer Will continue oxycodone 5-10 mg every 4 hours as needed.? Continue dexamethasone 4 mg b.i.d. she describes her pain as moderate today.. 3. Metastatic disease, likely primary lung Patient has longstanding history of tobacco use.? She does have a lung nodule as well as liver mass and mediastinal adenopathy.? At this point in time she does not wish to pursue further diagnosis.? Hospice referral in process.? She will need DME delivered to the home prior to discharge. 4. Crohn's disease Patient has been on IV infusions every 8 weeks.? She finds them to be ineffective.? She was due to have another infusion in the coming weeks but states she no longer will pursue this.? No flare or symptoms since she has been admitted 5. COPD No evidence exacerbation.? No shortness of breath. 6. Hypothyroidism Once medications have been reconciled will resume thyroid replacement 7. Hyperlipidemia Can likely discontinue her statin given goals of care 8. Chronic systolic Congestive heart failure She is on torsemide at baseline.? As noted, she had evidence of ARLENE on admission.? 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 She does have some pulmonary vascular congestion today.? She is not symptomatic.? Holding diuretics for now. 9. Hyponatremia Suspect this is SIADH rather than due to hypovolemia.? No further labs plan Code status DNR DNI Prophylaxis Deferred in the setting of her goals of care Disposition Plan to discharge home once hospice referral/DME delivery can be accomplished Time Spent With Patient Critical Care time: I spent a total of [] minutes of critical care time on this patient's care today; this time is exclusive of procedural time. Quality VTE Deep Vein Thrombosis/Pulmonary Embolism Present on Admission: No
[2021-11-04 07:00] VITALS: O2SAT 95
[2021-11-04 09:11] VITALS: BP 101/36; PULSE 99; RESP 24; TEMP 36.4; O2SAT 90
[2021-11-04] MEDS: dexAMETHasone 4 MG TABLET PO ×2 (10:32→18:03)
[2021-11-04] MEDS: SODIUM CHLORIDE 0.9% FLUSH 10 ML IV ×2 (10:32→20:11)
--- NOTE | 2021-11-04 13:12 | CM.DPC ---
DCP Hospice Planning: Per MD, pt continues to have limited urine output and likely getting closer to imminency and pt not stable enough to d/c until Hospice can open within 24 hours of hospital discharge. SW [facility] and they confirm DME to be delivered today and have Info Visit scheduled for 1600 today with spouse and family and earliest they can open pt to service is Th11/07/21 this week but will call SW back after Info Visit and leave msg to confirm family agreeable to sign Hospice Consents and the date and time to admit pt to their services. MD states spouse now considering SNF under Comfort care. SW met bedside with pt and spouse and explained role and pt confirms he himself went to SNF rehab and had insurance coverage and SW explained difference between SNF rehab and SNF for comfort and max of maybe 5-7 days coverage under [facility] for comfort but then private pay room and board. Spouse states knowing insurance doesn't cover and pt's preference for home he is now leaning towards Hospice at home. SW provided the PP CG list in the [facility] book and earmarked and discussed benefit of additional CGs in the home for assist between himself, pt's Dtr, and his Dtr and Hospice and he is willing to review and discuss with Dtrs and begin placing calls. SW reminded him of Info Visit call from Hospice today at 1600. Dtr then arrived bedside and supporting pt in the room. DAVID updated MD. Plan: SW to follow for confirmation from [facility] that family agreeable to Hospice Consents and when they can open pt to service towards scheduling BLS transport to home unless family wants to transport. SUSAN Ruiz
[2021-11-04] MEDS: LORazepam 2 MG/ML ORAL SOL 0.5 MG PO (18:06)
--- NOTE | 2021-11-04 19:34 | PC.NURSE ---
turned Q2 hours thru this shift. mentation seems more withdrawn, restless at dinner. prn lorazepam given x 1 w/ good result. oral care to keep mucosa moist. bilat h/a are in place, brought them in this AM . daughter Mariann here to see her mom. anticipate d/c tomorrow and hospice to open on thu. barrier to buttocks and coccyx. hernandez w/ 300 cc malodorous urine. small incont bm, foul odor. o2 when she will leave it on, 1lpm to keep sats > 91%.
[2021-11-04 20:01] VITALS: O2SAT 95
[2021-11-04 20:09] VITALS: BP 104/36; PULSE 90; RESP 24; TEMP 36.1; O2SAT 96
[2021-11-04 20:15] VITALS: O2SAT 95
--- NOTE | 2021-11-05 00:44 | PC.NURSE ---
Patient sedated from earlier Ativan at time of assessment so not verbally responsive. Respirations shallow at 24/min and has diminished breath sounds throughout. On 1L/min oxygen per [place] for comfort and sat is 95%. HRR. BT present; has been incontinent of stool. Indwelling catheter is patent; urine is cloudy and tea colored but did have 300cc out on previous shift. Is able to move herself when awake so repositioning using Nidhi function when asleep. Gait not assessed. SCD's not placed at this time. Fall risk score is high and bed alarm is activated.
[2021-11-05] MEDS: LORazepam 0.5 MG TABLET PO (05:37)
[2021-11-05 07:00] VITALS: BP 106/31; PULSE 86; RESP 22; TEMP 36.4; O2SAT 99
--- NOTE | 2021-11-05 07:43 | P.PN_ITS ---
Subjective Subjective Date Patient Seen: 11/05/21 Interval history: 81-year-old female with Crohn's disease, hypothyroidism, COPD, hyperlipidemia, CHF, hypertension, mixed hyperlipidemia, hypothyroidism, bilateral carotid artery stenosis, and recent diagnosis of metastatic lung cancer who was admitted with weakness, falls, poor oral intake, ARLENE and pain related to her new malignancy.? She was placed on oxycodone as needed for pain as well as dexamethasone to help reduce her liver capsular pain. Patient is noncommunicative this am. She is restless. Obvious jaundice. She is anuric. Exam Vital Signs (past 8 hours): Oxygen Delivery Method Nasal Cannula Oxygen Flow Rate 1 Narrative Exam Narrative: GEN:? Elderly female, somnolent, nonverbal, does moan w/exam HEENT:? Normocephalic, face symmetric NECK:? Supple, no lymphadenopathy CHEST:? Respiratory excursions symmetric, mild diffuse crackles ABD:? Soft, moderate right upper quadrant tenderness, mildly distended, bowel sounds present in all 4 quadrants, no organomegaly appreciated EXTR:? Warm, well perfused, no clubbing/cyanosis, or edema SKIN:? Warm and dry, jaundice NEURO:? somnolent Objective Labs Result Diagrams: 11/03/21 05:46 11/03/21 05:46 [facility] Medical History Anxiety Carpal tunnel syndrome Cataract, right eye CHF (congestive heart failure) Colon polyps COPD (chronic obstructive pulmonary disease) Depression Glaucoma Hearing loss Hiatal hernia Hyperlipidemia Hypertension Hypothyroidism Macular hole Multiple pulmonary nodules (03/20/15) Pulmonary nodules (2009) Scarlet fever Ulcerative colitis Surgical History (Updated 03/22/19 @ 14:48 by Mega Mayer MD) History of carpal tunnel release History of repair of hiatal hernia History of tonsillectomy Hx of cataract surgery Hx of cholecystectomy Hx of colonoscopy with polypectomy Hx of vitrectomy Status post appendectomy Status post hysterectomy Family History (Updated 01/15/18 @ 13:00 by Kiarra Topete LPN) Brother No problems noted. Father No problems noted. Mother Cancer Grandmother Leukemia Social History household members: spouse Smoking Status: Former smoker substance use type: marijuana Assessment & Plan Assessment & Plan narrative: 1. Acute kidney injury Creatinine was 1.21 on October 29, 3.36 on admission, BUN 61.? Patient appeared clinically dehydrated on admission.? She was placed on IV fluids.? Creatinine is 3.32 on the follwing morning w/BUN 59. No evidence of pelvic obstruction or pelvic malignancy, no evidence of hydronephrosis on imaging.? She received 2 L of IV fluids but these were discontinued as patient developed pulmonary congestion.? Her hernandez catheter remains in place. 150 cc out in the past 24 hours. No further intervention as she is essentially comfort care at this time awaiting d/c w/hospice. 2. Intractable pain secondary to new diagnosis of metastatic likely lung cancer Will continue oxycodone 5-10 mg every 4 hours as needed.? Continue dexamethasone 4 mg b.i.d. At this stage, if she loses her ability to swallow, will switch to oral concentrate or IV hydromorphone as morphine is contraindicated. 3. Metastatic disease, likely primary lung Patient has longstanding history of tobacco use.? She does have a lung nodule as well as liver mass and mediastinal adenopathy.? At this point in time she does not wish to pursue further diagnosis.? Hospice referral in process.? She will need DME delivered to the home prior to discharge. 4. Crohn's disease Patient had been on azothiaprine and vedolizumab IV q8 weeks. These have been discontinued given that she is now at end of life. 5. COPD No evidence exacerbation.? No dyspnea on exam today. 6. Hypothyroidism Will hold thyroid replacement given her end of life status. 7. Hyperlipidemia Statin therapy d/c'd. 8. Chronic systolic Congestive heart failure She is on torsemide at baseline.? As noted, she had evidence of ARLENE on admission.? 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 She does have some pulmonary vascular congestion today.? Again, given her end of life status, will defer diuretics. 9. Hyponatremia Suspect this is SIADH rather than due to hypovolemia.? No further labs plan Code status DNR DNI Prophylaxis Deferred in the setting of her goals of care Disposition If she is stable enough for transport home, plan to dc tomorrow via BLS ambulance w/[facility]mit to [facility]/07. Time Spent With Patient Critical Care time: I spent a total of [] minutes of critical care time on this patient's care today; this time is exclusive of procedural time. Quality VTE Deep Vein Thrombosis/Pulmonary Embolism Present on Admission: No
--- NOTE | 2021-11-05 09:31 | DIET.CONS2 ---
Dietary Inpatient Consultation Note Admission Date: 11/02/2021 12:52 Pt with metastatic cancer, poor appetite, chronically low BMI for age (20.3) electing for hospice services and comfort care, seemingly imminent. Nutrition Dx: Severe Acute on Chronic Protein Calorie Malnutrition r/t cancer hypermetabolism, low appetite, aeb BMI 20.3 (low for age), pts family reports pt meeting <50% EER x3w, pt with metastatic cancer- lesions in lungs and liver. Nutrition support not indicated c comfort care. Diet: 11/02/21 Dinner General (Regular) Diet Diet Modifications: Nutrition Percent Meal Consumed 15% 11/03/21 17:48 Electronically Signed by: Eloisa Donahue 11/05/21 09:31 Clinical Dietitian [address] [address]
--- NOTE | 2021-11-05 11:20 | CM.DPC ---
Addendum entered by SUSAN Ruiz 11/05/21 15:09: ADD: Per [facility] they can open pt to service on 11/07/21 at either 1000 or 1400. SW requested the [id number] slot and they have pt on the schedule. SW requested [facility] BLS for 11/07/21 at 0900 to home as family currently too concerned with pt coming home tomorrow before Hospice can open. BF Original Note: DCP Hospice Planning Per MD, pt more lethargic today and was given some sedation early this morning for comfort. MD agreeable with signing the POLST form for Comfort Measures towards use during transport to home with Hospice. SW called spouse and family as they were not bedside and spoke to spouse Roberto, and pt's Dtr and Dtr inlaw via speaker phone and confirmed they completed Hospice Info Visit and DME to be delivered today 11/05/21 around 1400 and Hospice to open on . SW confirmed that preference of transport is BLS and pt likely not safe to transport via POV and encouraged and discussed discharge to home tomorrow Wed but pt very anxious and concerned with pt discharging to home prior to Hospice opening on 11/07/21 and currently refusing d/c home tomorrow before Hospice and pt does seem to be declining in health since yesterday but will re-review with spouse and family later today. Family confirms spouse is primary DPOA for pt and Dtr is second. SW discussed need for POLST to be signed and pt currently not capable as she is quite somnolent and not currently responding much. Family very agreeable to sign POLST when they arrive bedside later today after DME delivery. No stairs to enter, hernandez present, oxygen currently 1LO2. [place] [facility] [place] [facility] to determine what time they can open pt to service on 11/07/21 so transport BLS can be scheduled. BLS form completed, awaiting time to set up transport. Family inquired again about PP CG and SW discussed they would be responsible for calling and getting it set up and determining hours and rate and they are agreeable and have the PP CG list and will begin placing calls. Plan: SW to follow closely for return call from [facility] to confirm time on they can start services in the home and then scheduling BLS transport to home. POLST needs spouse signature prior to d/c. SUSAN Ruiz
[2021-11-05] MEDS: SODIUM CHLORIDE 0.9% FLUSH 10 ML IV ×3 (11:46→22:28)
--- NOTE | 2021-11-05 12:51 | CM.DPNOTE ---
Addendum entered by Ginger Pereira 11/05/21 13:48: BLS transport is for at 0900, not 11/05/21, per Chyna. Ginger Pereira CM Assist. Original Note: [facility] for BLS transport for pt. at 0900 on 11/05/21. Told Angle pt. has polst, 1 L. O2 and hernandez with no stairs. Told her someone would be there when ambulance arrives. Ginger Pereira CM Assist.
[2021-11-05] MEDS: HYDROMORPHONE 0.5 MG INJ IV ×2 (16:15→22:27)
[2021-11-05 19:00] VITALS: O2SAT 97
[2021-11-05 19:50] VITALS: O2SAT 98
[2021-11-05 20:47] VITALS: BP 113/58; PULSE 84; RESP 10; TEMP 36.4; O2SAT 97
[2021-11-06] MEDS: SODIUM CHLORIDE 0.9% FLUSH 10 ML IV ×3 (02:04→09:17)
[2021-11-06] MEDS: HYDROMORPHONE 0.5 MG INJ IV ×4 (02:04→12:35)
[2021-11-06 03:05] VITALS: O2SAT 94
[2021-11-06 05:40] VITALS: O2SAT 86
--- NOTE | 2021-11-06 13:58 | PM.DDS.1 ---
Discharge Summary History of Illness Chief Complaint: Weakness Narrative: 81-year-old female with underlying Crohn's disease, hypothyroidism, COPD, hyperlipidemia, congestive heart failure, hypertension, mixed hyperlipidemia, hypothyroidism, bilateral carotid artery stenosis, and recent diagnosis of metastatic disease felt to be lung cancer who presented to the emergency department today with weakness, falls, and poor oral intake.? Patient had been feeling poorly for several weeks.? She presented to the emergency department on October 29.? As part of that evaluation she underwent imaging of her abdomen and pelvis due to complaints of abdominal pain and her known Crohn disease history.? Abdominal CT revealed innumerable hepatic metastases.? She subsequently underwent a chest CT which did show evidence of mediastinal and hilar adenopathy as well as the right lower lobe pulmonary nodule.? Patient was discharged home with plan to follow up with her primary care provider Dr. West.? She did see Dr. West yesterday and after lengthy discussion, he gave her a POLST form to complete and discussed referral to Oncology.? She states she did take several oxycodone with some relief yesterday.? However, today she notes that she just felt too poorly to stay home. She has now had a chance to think about it further about things.? She states that she does want to be a DNR.? She also reports she has no interest in pursuing chemotherapy or other palliative treatment.? At this point, she would like to pursue hospice.? She states she has discussed her diagnosis with her family and they are all supportive.? She notes that her is having difficulty providing her care.? She does have 2 younger siblings in their 60s who live in [facility] who may be able to help, she also has a stepdaughter in [place] who may be able to assist with her care at home. Hospital Course Date of Admission: 11/02/21 12:52 Primary care provider: Roberto West MD Consults: 11/02/21 18:33 Consult to Hospice Referral Routine Comment: 11/03/21 16:52 Consult to Dietitian, Adult Routine Comment: Reason For Exam: low jennifer/ hospice tomorrow (d/c home) Discharge Diagnosis: 1. Acute kidney injury 2. Intractable pain secondary to new diagnosis of metastatic likely lung cancer 3. Metastatic disease, likely primary lung 4. Crohn's disease 5. COPD 6. Hypothyroidism 7. Hyperlipidemia 8. Chronic systolic Congestive heart failure 9. Hyponatremia Hospital Course: 81-year-old female with Crohn's disease, hypothyroidism, COPD, hyperlipidemia, CHF, hypertension, mixed hyperlipidemia, hypothyroidism, bilateral carotid artery stenosis, and recent diagnosis of metastatic lung cancer who was admitted with weakness, falls, poor oral intake, ARLENE and pain related to her new malignancy.? She was placed on oxycodone as needed for pain as well as dexamethasone to help reduce her liver capsular pain. Went full comfort care per patient's wishes and with family at bedside on 11/06/21 at 13:10. Objective Labs Result Diagrams: 11/03/21 05:46 11/03/21 05:46
== END 2021-11-06 13:10 | disposition expired | DRG 682 ==
LOC: ED 12:42 → AC 12:53
PROVIDERS: Admitting Provider Family Medicine; Emergency Provider Emergency Medicine; PCP Student in an Organized Health Care Education/Training Program; Referring Provider Emergency Medicine; Visit Provider Family Medicine
DX: N17.9 Acute kidney failure, unspecified (principal); G93.41 Metabolic encephalopathy; C34.92 Malignant neoplasm of unspecified part of left bronchus or lung; E87.1 Hypo-osmolality and hyponatremia; K50.90 Crohn's disease, unspecified, without complications; I50.22 Chronic systolic (congestive) heart failure; C79.9 Secondary malignant neoplasm of unspecified site; E86.0 Dehydration; G89.3 Neoplasm related pain (acute) (chronic); I11.0 Hypertensive heart disease with heart failure; M25.562 Pain in left knee
CPT/HCPCS: 36415; 70450; 71045; 73562; 80048; 80053; 81001; 82550; 82553; 83690; 83735; 84484; 85025; 87077; 87086; 87186; 87635; 93005; 93010; 94760; 96361; 96374; 96375; 99285; C9803; A9270; J1170; J2270; J2405; J7050